=== PATIENT | male | born 1945 | race Caucasian/White ===

== ENCOUNTER 2017-03-15 22:21 | Inpatient (IN) | payer MEDICARE, OTHER ==
[2017-03-15 22:22] VITALS: BMI 25.7
[2017-03-15] MEDS ORDERED: Nitroglycerin 50mg in D5W 50 MG/250 ML BOTTLE IV SCH (22:32)
[2017-03-15 22:58] LABS: BASO # 0.2 K/uL (0.0-0.2); BASO % 1.1 % (0.0-2.0); EOS # 0.3 K/uL (0.0-0.7); EOS % 1.6 % (0.0-4.0); HEMATOCRIT 32.8 % (35.0-51.0); LYMPH # 3.2 K/uL (1.0-4.3); LYMPH % 18.8 % (20.0-40.0); MEAN CELL VOLUME 99.8 fL (80.0-94.0); MEAN CORPUSCULAR HEMOGLOBIN 32.9 pg (27.0-31.0); MEAN CORPUSCULAR HGB CONC 32.9 g/dL (33.0-37.0); MEAN PLATELET VOLUME 10.4 fL (7.2-11.7); MONO # 1.1 K/uL (0.0-0.8); MONO % 6.5 % (0.0-10.0); NRBC % 0.1 % (0.0-2.0); RED CELL DISTRIBUTION WIDTH 19.5 % (11.5-14.5); WHITE BLOOD COUNT 17.2 K/uL (4.8-10.8)
[2017-03-15 23:09] LABS: ALB/GLOB RATIO 1.3 (1.0-2.1); CALCIUM 9.1 mg/dl (8.6-10.4); TOTAL PROTEIN 7.9 g/dL (6.3-8.3)
[2017-03-15 23:22] LABS: TROPONIN I 0.064 ng/mL (0.00-0.120)
[2017-03-16] MEDS: Nitroglycerin 50mg in D5W 50 MG/250 ML BOTTLE IV SCH ×4 (00:45→08:53)
--- NOTE | 2017-03-16 00:52 | C.PDOC ---
History Of Present Illness 71 y/o male brought to ED by EMS for sudden onset shortness of breath. Patient gets dialysis Sunday, Sunday and Sunday states he went yesterday. While on field patient received bypap, Nitro drip and Lasix. No other complaints at this time. Time Seen by Provider: 03/15/17 22:34 Chief Complaint (Nursing): Shortness Of Breath History Per: Patient History/Exam Limitations: no limitations Onset/Duration Of Symptoms: Hrs Current Symptoms Are (Timing): Still Present Past Medical History Reviewed: Historical Data, Nursing Documentation, Vital Signs Vital Signs: Last Vital Signs Temp 98 F 03/15/17 22:28 Pulse 114 H 03/16/17 01:54 Resp 20 03/16/17 01:54 BP 152/96 H 03/16/17 01:54 Pulse Ox 100 03/16/17 01:54 - Medical History PMH: CAD, Cardia Arrhythmia, Diabetes, Gall Bladder Disease (GALLSTONES), HTN Surgical History: Cholecystectomy, Tonsillectomy - [facility] Procedures INTRAOPER CHOLANGIOGRAM (10/15/13) LAPAROSCOPIC CHOLECYSTECTOMY (10/15/13) Family History: States: No Known Family Hx - Social History Hx Tobacco Use: No Hx Alcohol Use: No Hx Substance Use: No - Immunization History Hx Tetanus Toxoid Vaccination: No Hx Influenza Vaccination: Yes Hx Pneumococcal Vaccination: No Review Of Systems Constitutional: Negative for: Fever, Chills Cardiovascular: Negative for: Chest Pain Respiratory: Positive for: Shortness of Breath. Negative for: Cough Gastrointestinal: Negative for: Nausea, Vomiting Skin: Negative for: Rash Physical Exam - Physical Exam Appears: Other (Severe respiratory distress) Skin: Warm, Dry Head: Atraumatic, Normacephalic Oral Mucosa: Moist Neck: Normal ROM, Supple Chest: Symmetrical Cardiovascular: Rhythm Regular Respiratory: Rales (Bypap bilaterally), No Rhonchi, No Wheezing Gastrointestinal/Abdominal: Soft, No Tenderness, No Guarding, No Rebound Extremity: Normal ROM, No Pedal Edema Neurological/Psych: Oriented x3 ED Course And Treatment - Laboratory Results Result Diagrams: 03/15/17 22:55 03/15/17 22:55 Lab Interpretation: Abnormal ECG: Interpreted By Me ECG Rhythm: L BBB ECG Interpretation: Normal, Abnormal Rate From EC (bpm) O2 Sat by Pulse Oximetry: 98 (RA) Pulse Ox Interpretation: Normal - Radiology CXR: Interpreted by Me CXR Interpretation: Yes: Heart Size, Other (++ CHF) Progress Note: nitro and Cardizem drips, BiPap Reevaluation Time: 00:58 Reassessment Condition: Improved (mild improved) - Physician Consult Information Outcome Of Conversation: 0045: d/w Dr. Kyle- ICU- ok to icu. 0050: d/w Dr Poe, Hospitalist covering pt's for Dr. Hopkins- ok to ICU. 0100: d/w Dr. Rebollar- Nephrology [employer]arer- ok to order HD when HD RN arrives. Medical Decision Making Medical Decision Making: flash pulm edema, mild hyperkalemia, no overall body fluid overload continue BP meds and Stat HD ICU Disposition Doctor Will See Patient In The: Hospital - Disposition Disposition: HOSPITALIZED Disposition Time: 01:00 Condition: FAIR - Clinical Impression Clinical Impression: CHF (congestive heart failure), Uncontrolled hypertension - Scribe Statement The provider has reviewed the documentation as recorded by the Paco Gordon All medical record entries made by the Paco were at my direction and personally dictated by me. I have reviewed the chart and agree that the record accurately reflects my personal performance of the history, physical exam, medical decision making, and the department course for this patient. I have also personally directed, reviewed, and agree with the discharge instructions and disposition.
--- NOTE | 2017-03-16 02:05 | CP.PCM.HP ---
<IanJillian RiversHuyen - Last Filed: 03/16/17 04:01> History of Present Illness - History of Present Illness History of Present Illness: 71 year old male with history of end stage renal disease, diabetes, hypertension and prostate cancer presents to the ED for difficulty breathing. Patient states he was recently admitted to [place] for abdominal pain and was discharged 2-3 weeks ago. Patient stated he vomited once while in the ED and has been coughing for the past 3 weeks with green sputum. Patient denies having a heart attack in the past. Patient denies chest pain, palpiations at this time. PMD: Sandeep Lead Mason Tender: Dr. Valerio Past Medical History: End stage renal disease (dialysis MWF), diabetes, hypertension, prostate cancer Past Surgical History: prostate, cholecystectomy, AVF in left arm Social History: denies smoking, denies alcohol use, lives with Family history: not contributory Medications: details not available as patient does not remember- per she will bring in the medications to verify Allergies: NKDA Present on Admission - Present on Admission Any Indicators Present on Admission: No Review of Systems - Review of Systems Systems not reviewed;Unavailable: Respiratory Distress - Constitutional Constitutional: absent: Chills, Fever, Headache - Cardiovascular Cardiovascular: Dyspnea. absent: Chest Pain - Respiratory Respiratory: Cough, Dyspnea, Dyspnea on Exertion, Change in Mucous Color (green) - Gastrointestinal Gastrointestinal: Nausea, Vomiting. absent: Constipation, Diarrhea - Genitourinary Genitourinary: absent: Dysuria - Musculoskeletal Musculoskeletal: absent: Numbness, Tingling - Neurological Neurological: absent: Dizziness, Headaches, Weakness Past Patient History - Past Medical History & Family History Past Medical History?: Yes - Past Social History Smoking Status: Never Smoked - CARDIAC Hx Cardia Arrhythmia: Yes Hx Hypertension: Yes - HEENT Hx HEENT Problems: Yes Other/Comment: RINGING RIGHT EAR - ENDOCRINE/METABOLIC Hx Endocrine Disorders: Yes Hx Diabetes Mellitus Type 2: Yes - HEMATOLOGICAL/ONCOLOGICAL Hx Blood Disorders: Yes Hx Cancer: Yes (PROSTATE) - GASTROINTESTINAL Hx Gall Bladder Disease: Yes (GALLSTONES) - GENITOURINARY/GYNECOLOGICAL Hx Genitourinary Disorders: Yes Hx Prostate Cancer: Yes Other/Comment: POST URINARY FREQUENCT PROSTATE SX SURGERY ON URETHRA NO LONGER FREQUENCY - PSYCHIATRIC Hx Substance Use: No - SURGICAL HISTORY Hx Cholecystectomy: Yes Hx Tonsillectomy: Yes - ANESTHESIA Hx Anesthesia: Yes Hx Anesthesia Reactions: No Meds Allergies/Adverse Reactions: Allergies Allergy/AdvReac Type Severity Reaction Status Date / Time No Known Allergies Allergy Unverified 04/21/15 12:54 Physical Exam - Constitutional Appears: In Acute Distress - Head Exam Head Exam: ATRAUMATIC, NORMAL INSPECTION, NORMOCEPHALIC - Eye Exam Eye Exam: EOMI, Normal appearance, PERRL Pupil Exam: NORMAL ACCOMODATION - ENT Exam ENT Exam: Mucous Membranes Moist - Respiratory Exam Respiratory Exam: Respiratory Distress - Cardiovascular Exam Cardiovascular Exam: REGULAR RHYTHM, +S1, +S2. absent: JVD - GI/Abdominal Exam GI & Abdominal Exam: Normal Bowel Sounds, Soft. absent: Tenderness - Extremities Exam Extremities exam: Positive for: normal inspection. Negative for: pedal edema, tenderness Additional comments: AV fistula in left arm - Neurological Exam Neurological exam: Alert, Oriented x3 - Skin Skin Exam: Normal Color, Warm Results - Vital Signs Recent Vital Signs: Last Vital Signs Temp 98 F 03/15/17 22:28 Pulse 114 H 03/16/17 01:54 Resp 20 03/16/17 01:54 BP 152/96 H 03/16/17 01:54 Pulse Ox 98 03/16/17 02:05 - Labs Result Diagrams: 03/15/17 22:55 03/15/17 22:55 Labs: Laboratory Results - last 24 hr 03/15/17 03/15/17 22:55 22:55 WBC 17.2 H D RBC 3.29 L Hgb 10.8 L Hct 32.8 L MCV 99.8 H D MCH 32.9 H MCHC 32.9 L RDW 19.5 H Plt Count 210 D MPV 10.4 Neut % (Auto) 72.0 Lymph % (Auto) 18.8 L [place] % (Auto) 6.5 Eos % (Auto) 1.6 Baso % (Auto) 1.1 Neut # 12.4 H Lymph # 3.2 [place] # 1.1 H Eos # 0.3 Baso # 0.2 Sodium 135 Potassium 6.0 H Chloride 97 L Carbon Dioxide 19 L Anion Gap 25 H BUN 50 H Creatinine 6.9 H Est GFR ( Amer) 10 Est GFR (Non-Af Amer) 8 Random Glucose 247 H Calcium 9.1 Total Bilirubin 1.0 AST 20 ALT 25 Alkaline Phosphatase 60 Troponin I 0.0640 NT-Pro-B Natriuret Pep 42925 H Total Protein 7.9 Albumin 4.5 Globulin 3.4 Albumin/Globulin Ratio 1.3 Assessment & Plan - Assessment and Plan (Free Text) Assessment: 1.) Shortness of breath possibly secondary to HTN urgency - Patient admitted to ICU - Hydralazine PRN - High flow O2 - f/u chest x-ray 2.) History of ESRD - Dialysis MWF - Nephrology Consult: Dr. Pickens --> help appreciated 3.) History of HTN cardiomyopathy - EKG: LBBB - f/u ECHO 4.) History of Diabets - Insulin dependent DM - Accuchecks 5.) Prophylaxis - Heparin SC - Protonix - SCDs - Confirm home medications with <Cristian Poe - Last Filed: 03/16/17 04:29> Results - Vital Signs Recent Vital Signs: Last Vital Signs Temp 98 F 03/15/17 22:28 Pulse 113 H 03/16/17 03:24 Resp 33 H 03/16/17 03:24 BP 174/100 H 03/16/17 03:24 Pulse Ox 98 03/16/17 03:24 - Labs Result Diagrams: 03/15/17 22:55 03/15/17 22:55 Labs: Laboratory Results - last 24 hr 03/15/17 03/15/17 22:55 22:55 WBC 17.2 H D RBC 3.29 L Hgb 10.8 L Hct 32.8 L MCV 99.8 H D MCH 32.9 H MCHC 32.9 L RDW 19.5 H Plt Count 210 D MPV 10.4 Neut % (Auto) 72.0 Lymph % (Auto) 18.8 L [place] % (Auto) 6.5 Eos % (Auto) 1.6 Baso % (Auto) 1.1 Neut # 12.4 H Lymph # 3.2 [place] # 1.1 H Eos # 0.3 Baso # 0.2 Sodium 135 Potassium 6.0 H Chloride 97 L Carbon Dioxide 19 L Anion Gap 25 H BUN 50 H Creatinine 6.9 H Est GFR ( Amer) 10 Est GFR (Non-Af Amer) 8 Random Glucose 247 H Calcium 9.1 Total Bilirubin 1.0 AST 20 ALT 25 Alkaline Phosphatase 60 Troponin I 0.0640 NT-Pro-B Natriuret Pep 98547 H Total Protein 7.9 Albumin 4.5 Globulin 3.4 Albumin/Globulin Ratio 1.3 Assessment & Plan - Date & Time Date: 03/16/17 (I have seen and examined the patient. I agree with the findings and plan of care as documented by Dr. Sosa. Patient with acute pulmonary edema. ESRD. Nephro consult for emergent dialysis. Monitor oxygen saturation and maintain airway. Admit to ICU for close monitor. Also with history of diabetes. Accuchecks and NISS. Monitor for acute changes.) Time: 04:28 Attending/Attestation - Attestation I have personally seen and examined this patient.: Yes I have fully participated in the care of the patient.: Yes I have reviewed all pertinent clinical information: Yes
--- NOTE | 2017-03-16 02:20 | CP.PCM.CON ---
History of Present Illness - History of Present Illness History of Present Illness: 71 M ESRD on HD MWF, HTN, DM, LBBB, prostate cancer s/p surg, non compliance with diet/meds brought to ER via ambulance, patient noticed in ER to be in CHF, right side pulm edema, RR in 40, HR in 140's, BP 220/150 was initially in ER given amiodarone, diltiazem and nitro drip started. Denied CP, patient in ER anxious and requested to go home despite sob and Niece who is nurse in Hospital made him stay. PMH as above PSH prostate, cholecystectomy, AVF in left arm Allergies NKDA Social denies smoking alcohol lives with Family history not contributory Meds details not available as pt does not remember, but takes bp meds, insulin In ER step down method used for BP NTG started at 200mcg/kg/min, iv hydralazine 5mg, diltiazem tapered and dced, arrangement being made for urgent HD, Review of Systems - Review of Systems All systems: reviewed and no additional remarkable complaints except (HPI) Past Patient History - Past Medical History & Family History Past Medical History?: Yes - Past Social History Smoking Status: Never Smoked - CARDIAC Hx Cardia Arrhythmia: Yes Hx Hypertension: Yes - HEENT Hx HEENT Problems: Yes Other/Comment: RINGING RIGHT EAR - ENDOCRINE/METABOLIC Hx Endocrine Disorders: Yes Hx Diabetes Mellitus Type 2: Yes - HEMATOLOGICAL/ONCOLOGICAL Hx Blood Disorders: Yes Hx Cancer: Yes (PROSTATE) - GASTROINTESTINAL Hx Gall Bladder Disease: Yes (GALLSTONES) - GENITOURINARY/GYNECOLOGICAL Hx Genitourinary Disorders: Yes Hx Prostate Cancer: Yes Other/Comment: POST URINARY FREQUENCT PROSTATE SX SURGERY ON URETHRA NO LONGER FREQUENCY - PSYCHIATRIC Hx Substance Use: No - SURGICAL HISTORY Hx Cholecystectomy: Yes Hx Tonsillectomy: Yes - ANESTHESIA Hx Anesthesia: Yes Hx Anesthesia Reactions: No Meds Allergies/Adverse Reactions: Allergies Allergy/AdvReac Type Severity Reaction Status Date / Time No Known Allergies Allergy Unverified 04/21/15 12:54 - Medications Medications: Current Medications Heparin Sodium (Porcine) (Heparin) 5,000 units SC Q8 SINDI Nitroglycerin/Dextrose (Nitroglycerin 50 Mg/250 Ml D5w) 50 mg in 250 mls @ 60 mls/hr IV .Q4H10M SINDI; 200 MCG/MIN PRN Reason: Protocol Last Admin: 03/16/17 00:45 Dose: 60 mls/hr Pantoprazole Sodium (Protonix Inj) 40 mg IVP Q12H SINDI Physical Exam - Additional Findings Additional findings: * HEENT ROSALIND * Neck no significant JVD * CVS regular HR QRS complex to baseline LBBB * PA soft * Ext trace 1+ edema, avf in left arm * PEDIATRIC NURSE PRACTITIONER awake oriented x3 * Skin normal turgor Results - Vital Signs Recent Vital Signs: Last Vital Signs Temp 98 F 03/15/17 22:28 Pulse 114 H 03/16/17 01:54 Resp 20 03/16/17 01:54 BP 152/96 H 03/16/17 01:54 Pulse Ox 98 03/16/17 02:05 - Labs Result Diagrams: 03/15/17 22:55 03/15/17 22:55 Labs: Laboratory Results - last 24 hr 03/15/17 03/15/17 22:55 22:55 WBC 17.2 H D RBC 3.29 L Hgb 10.8 L Hct 32.8 L MCV 99.8 H D MCH 32.9 H MCHC 32.9 L RDW 19.5 H Plt Count 210 D MPV 10.4 Neut % (Auto) 72.0 Lymph % (Auto) 18.[address] [place] % (Auto) 6.5 Eos % (Auto) 1.6 Baso % (Auto) 1.1 Neut # 12.4 H Lymph # 3.2 [place] # 1.1 H Eos # 0.3 Baso # 0.2 Sodium 135 Potassium 6.0 H Chloride 97 L Carbon Dioxide 19 L Anion Gap 25 H BUN 50 H Creatinine 6.9 H Est GFR ( Amer) 10 Est GFR (Non-Af Amer) 8 Random Glucose 247 H Calcium 9.1 Total Bilirubin 1.0 AST 20 ALT 25 Alkaline Phosphatase 60 Troponin I 0.0640 NT-Pro-B Natriuret Pep 15650 H Total Protein 7.9 Albumin 4.5 Globulin 3.4 Albumin/Globulin Ratio 1.3 Assessment & Plan - Assessment and Plan (Free Text) Assessment: * Acute asymmetric flash right side pulm/interstial edema due to HTN urgency * ESRD on HD MWF * HTN cardiomyopathy * LBBB * Insulin dependent DM * Poor compliance with diet and meds * Prostate cancer s/p surg Plan: * NTG high dose to bring SBP 120 * prn hydralazine * HD urgent, contacted * High flow o2 * insulin sliding scale * Confirm home meds * GI/DVT prophylaxis
[2017-03-16] MEDS: (Novolin R) Insulin Human Regular 100 units/ml vial SC SCH ×2 (08:19→12:10)
--- NOTE | 2017-03-16 08:38 | RAD ---
HISTORY: SOB COMPARISON: Chest x-ray performed 09/25/16 TECHNIQUE: Chest, one view. FINDINGS: Examination limited by habitus and patient obliquity. LUNGS: Biapical pleural thickening. Extensive interstitial markings and airspace opacities may reflect infection or edema. External defibrillator pad projects over the left lower lateral chest obscuring evaluation of the underlying parenchyma. PLEURA: Probable small bilateral pleural effusions. No definite pneumothorax . CARDIOVASCULAR: Cardiomegaly. OSSEOUS STRUCTURES: Degenerative changes. VISUALIZED UPPER ABDOMEN: Unremarkable. OTHER FINDINGS: None. IMPRESSION: Extensive interstitial markings and airspace opacities may reflect infection or edema. Probable small bilateral pleural effusions. Biapical pleural thickening. Cardiomegaly.
[2017-03-16 09:50] LABS: BASO # 0.1 K/uL (0.0-0.2); BASO % 0.7 % (0.0-2.0); EOS # 0.1 K/uL (0.0-0.7); EOS % 0.8 % (0.0-4.0); LYMPH # 1.9 K/uL (1.0-4.3); LYMPH % 15.8 % (20.0-40.0); MEAN CELL VOLUME 100.3 fL (80.0-94.0); MEAN CORPUSCULAR HGB CONC 32.9 g/dL (33.0-37.0); MEAN PLATELET VOLUME 10.1 fL (7.2-11.7); MONO # 1.2 K/uL (0.0-0.8); MONO % 10.4 % (0.0-10.0); RED CELL DISTRIBUTION WIDTH 19.4 % (11.5-14.5)
[2017-03-16] MEDS ORDERED: Pantoprazole 40 mg EC Tab PO SCH (11:15)
[2017-03-16 11:22] VITALS: TEMP 98.8
[2017-03-16] MEDS ORDERED: Labetalol Hydrochloride 300 mg Tab PO SCH ×2 (11:44→14:00)
--- NOTE | 2017-03-16 12:07 | CP.PCM.PN ---
Subjective - Date & Time of Evaluation Date of Evaluation: 03/16/17 Time of Evaluation: 12:07 - Subjective Subjective: Denies SOB,patient wants to go home,feels good Objective - Vital Signs/Intake and Output Vital Signs (last 24 hours): Temp Pulse Resp BP Pulse Ox 98.8 F 102 H 25 H 168/97 H 88 L 03/16/17 08:00 03/16/17 11:00 03/16/17 11:00 03/16/17 10:51 03/16/17 11:00 Intake and Output: 03/16/17 03/16/17 06:59 18:59 Intake Total 260 554 Output Total 0 50 Balance 260 504 - Medications Medications: Current Medications Clonidine HCl (Catapres) 0.1 mg PO TID [facility] Heparin Sodium (Porcine) (Heparin) 5,000 units SC Q8 [facility] Last Admin: 03/16/17 06:25 Dose: 5,000 units Insulin Human Regular (Novolin R) 0 unit SC ACHS [facility] PRN Reason: Protocol Last Admin: 03/16/17 08:19 Dose: 1 unit Labetalol HCl (Normodyne) 300 mg PO TID [facility] Last Admin: 03/16/17 12:00 Dose: 300 mg Pantoprazole Sodium (Protonix Ec Tab) 40 mg PO DAILY [facility] Pneumococcal Polyvalent Vaccine (Pneumovax 23 Vaccine) 0.5 ml IM .ONCE ONE Stop: 03/18/17 10:01 - Labs Labs: 03/16/17 09:45 03/15/17 22:55 - Constitutional Appears: Non-toxic, No Acute Distress - Head Exam Head Exam: NORMAL INSPECTION - Eye Exam Eye Exam: Normal appearance - ENT Exam ENT Exam: Mucous Membranes Moist - Neck Exam Neck Exam: Full ROM - Respiratory Exam Respiratory Exam: Rales, NORMAL BREATHING PATTERN - Cardiovascular Exam Cardiovascular Exam: REGULAR RHYTHM - GI/Abdominal Exam GI & Abdominal Exam: Soft, Normal Bowel Sounds - Neurological Exam Neurological Exam: Alert, Oriented x3 - Psychiatric Exam Psychiatric exam: Normal Mood - Skin Skin Exam: Normal Color Assessment and Plan - Assessment and Plan (Free Text) Assessment: 71 M PMHx of HTN, ESRD, DM presented with SOB due to pulmonary edema. He improved after HD,feels good and wants to leave AMA.Hi sBlood is high. Spoke to patient with the bilingual interpreter service in detail.Explained that he should stay until his blood pressure controlled.He wanted all IV lines out and let him leave.Explained about the rist of respiratory failure,stroke and .His son in law spoke to him 1.Pulmonary edema-Due to ESRD better after HD 2.HTN/Hypertensive urgency continue labetolol and clonidine 3.ESRD-HD d/w patient's aeroplane pilot Dr aLzaro 4.DM 5.prophylaxis-GI and DVT
[2017-03-16 12:13] VITALS: O2SAT 99
[2017-03-16 13:22] VITALS: BP 165/94; PULSE 92; RESP 17
--- NOTE | 2017-03-16 14:47 | CP.CCUPN ---
<Leonie Smith - Last Filed: 03/16/17 15:04> CCU Subjective - Physician Review Subjective (Free Text): Patient seen and examined at bedside. Patient denies any symptoms at this time and is eager to go home. Explained to patient that his blood pressure has not been optimized and that he should be monitored inpatient until it stabilizes. Patient denies shortness of breath, chest pain, abdominal pain, nausea, vomiting , constipation or diarrhea. Patient left AMA, patient explained risks including but not limited to hypertension, stroke, respiratory failure, and . CCU Objective - Vital Signs / Intake & Output Vital Signs (Last 4 hours): Vital Signs Pulse Resp BP Pulse Ox 03/16/17 12:40 92 H 17 03/16/17 12:30 93 H 34 H 03/16/17 12:23 95 H 19 165/94 H 03/16/17 12:20 94 H 25 H 03/16/17 12:10 101 H 27 H 03/16/17 12:06 108 H 14 03/16/17 12:00 104 H 28 H 03/16/17 11:51 103 H 25 H 03/16/17 11:50 103 H 25 H 03/16/17 11:40 108 H 13 03/16/17 11:36 106 H 17 99 03/16/17 11:30 104 H 12 98 03/16/17 11:21 101 H 25 H 176/104 H 99 03/16/17 11:20 102 H 26 H 98 03/16/17 11:10 106 H 16 93 L 03/16/17 11:06 102 H 18 176/96 H 93 L 03/16/17 11:00 102 H 25 H 88 L 03/16/17 10:51 99 H 16 168/97 H 95 03/16/17 10:50 96 H 23 95 Intake and Output (Last 8hrs): Intake & Output 03/15/17 03/16/17 03/16/17 22:59 06:59 14:59 Intake Total 260 604 Output Total 0 50 Balance 260 554 Weight 170 lb 165 lb 5.547 oz Intake: IV 250 Intake, IV Amount 260 194 Right Hand 240 189 Right Wrist 20 5 Oral 160 Output: Urine 0 50 Urine, Voided 0 50 - Physical Exam Head: Positive for: Atraumatic, Normocephalic Respiratory/Chest: Positive for: Clear to Auscultation. Negative for: Wheezes Cardiovascular: Positive for: Normal S1, S2, Tachycardic Abdomen: Negative for: Tenderness, Distention Lower Extremity: Positive for: Normal Inspection Neurological: Positive for: GCS=15 Skin: Positive for: Warm, Normal Color Psychiatric: Positive for: Alert, Oriented x 3 - Patient Studies Lab Studies: Lab Studies 03/16/17 03/16/17 03/16/17 Range/Units 12:07 09:45 07:52 WBC 12.0 H (4.8-10.8) K/uL RBC 2.79 L (4.40-5.90) Mil/uL Hgb 9.2 L (12.0-18.0) g/dL Hct 28.0 L (35.0-51.0) % MCV 100.3 H (80.0-94.0) fL MCH 33.0 H (27.0-31.0) pg MCHC 32.9 L (33.0-37.0) g/dL RDW 19.4 H (11.5-14.5) % Plt Count 130 (130-400) K/uL MPV 10.1 (7.2-11.7) fL Neut % (Auto) 72.3 (50.0-75.0) % Lymph % (Auto) 15.8 L (20.0-40.0) % Rankin % (Auto) 10.4 H (0.0-10.0) % Eos % (Auto) 0.8 (0.0-4.0) % Baso % (Auto) 0.7 (0.0-2.0) % Neut # 8.7 H (1.8-7.0) K/uL Lymph # 1.9 (1.0-4.3) K/uL Rankin # 1.2 H (0.0-0.8) K/uL Eos # 0.1 (0.0-0.7) K/uL Baso # 0.1 (0.0-0.2) K/uL Sodium (132-148) mmol/L Potassium (3.6-5.2) mmol/L Chloride (98-107) mmol/L Carbon Dioxide (22-30) mmol/L Anion Gap (10-20) BUN (9-20) mg/dL Creatinine (0.8-1.5) mg/dL Est GFR ( Amer) Est GFR (Non-Af Amer) POC Glucose (mg/dL) 137 H 173 H (65-110) mg/dL Random Glucose (75-110) mg/dL Calcium (8.6-10.4) mg/dl Total Bilirubin (0.2-1.3) mg/dL AST (17-59) U/L ALT (21-72) U/L Alkaline Phosphatase (38-126) U/L Troponin I (0.00-0.120) ng/mL NT-Pro-B Natriuret Pep (0-900) pg/mL Total Protein (6.3-8.3) g/dL Albumin (3.5-5.0) g/dL Globulin (2.2-3.9) gm/dL Albumin/Globulin Ratio (1.0-2.1) Hep Bs Antibody (NEGATIVE) Hep B Core IgM Ab (NEGATIVE) Hepatitis C Antibody (NEGATIVE) 03/16/17 03/16/17 03/15/17 Range/Units 06:53 06:53 22:55 WBC (4.8-10.8) K/uL RBC (4.40-5.90) Mil/uL Hgb (12.0-18.0) g/dL Hct (35.0-51.0) % MCV (80.0-94.0) fL MCH (27.0-31.0) pg MCHC (33.0-37.0) g/dL RDW (11.5-14.5) % Plt Count (130-400) K/uL MPV (7.2-11.7) fL Neut % (Auto) (50.0-75.0) % Lymph % (Auto) (20.0-40.0) % Rankin % (Auto) (0.0-10.0) % Eos % (Auto) (0.0-4.0) % Baso % (Auto) (0.0-2.0) % Neut # (1.8-7.0) K/uL Lymph # (1.0-4.3) K/uL Rankin # (0.0-0.8) K/uL Eos # (0.0-0.7) K/uL Baso # (0.0-0.2) K/uL Sodium 135 (132-148) mmol/L Potassium 6.0 H (3.6-5.2) mmol/L Chloride 97 L (98-107) mmol/L Carbon Dioxide 19 L (22-30) mmol/L Anion Gap 25 H (10-20) BUN 50 H (9-20) mg/dL Creatinine 6.9 H (0.8-1.5) mg/dL Est GFR ( Amer) 10 Est GFR (Non-Af Amer) 8 POC Glucose (mg/dL) (65-110) mg/dL Random Glucose 247 H (75-110) mg/dL Calcium 9.1 (8.6-10.4) mg/dl Total Bilirubin 1.0 (0.2-1.3) mg/dL AST 20 (17-59) U/L ALT 25 (21-72) U/L Alkaline Phosphatase 60 (38-126) U/L Troponin I 0.0640 (0.00-0.120) ng/mL NT-Pro-B Natriuret Pep 14043 H (0-900) pg/mL Total Protein 7.9 (6.3-8.3) g/dL Albumin 4.5 (3.5-5.0) g/dL Globulin 3.4 (2.2-3.9) gm/dL Albumin/Globulin Ratio 1.3 (1.0-2.1) Hep Bs Antibody Positive (NEGATIVE) Hep B Core IgM Ab Negative (NEGATIVE) Hepatitis C Antibody Negative (NEGATIVE) 03/15/17 Range/Units 22:55 WBC 17.2 H D (4.8-10.8) K/uL RBC 3.29 L (4.40-5.90) Mil/uL Hgb 10.8 L (12.0-18.0) g/dL Hct 32.8 L (35.0-51.0) % MCV 99.8 H D (80.0-94.0) fL MCH 32.9 H (27.0-31.0) pg MCHC 32.9 L (33.0-37.0) g/dL RDW 19.5 H (11.5-14.5) % Plt Count 210 D (130-400) K/uL MPV 10.4 (7.2-11.7) fL Neut % (Auto) 72.0 (50.0-75.0) % Lymph % (Auto) 18.8 L (20.0-40.0) % Rankin % (Auto) 6.5 (0.0-10.0) % Eos % (Auto) 1.6 (0.0-4.0) % Baso % (Auto) 1.1 (0.0-2.0) % Neut # 12.4 H (1.8-7.0) K/uL Lymph # 3.2 (1.0-4.3) K/uL Rankin # 1.1 H (0.0-0.8) K/uL Eos # 0.3 (0.0-0.7) K/uL Baso # 0.2 (0.0-0.2) K/uL Sodium (132-148) mmol/L Potassium (3.6-5.2) mmol/L Chloride (98-107) mmol/L Carbon Dioxide (22-30) mmol/L Anion Gap (10-20) BUN (9-20) mg/dL Creatinine (0.8-1.5) mg/dL Est GFR ( Amer) Est GFR (Non-Af Amer) POC Glucose (mg/dL) (65-110) mg/dL Random Glucose (75-110) mg/dL Calcium (8.6-10.4) mg/dl Total Bilirubin (0.2-1.3) mg/dL AST (17-59) U/L ALT (21-72) U/L Alkaline Phosphatase (38-126) U/L Troponin I (0.00-0.120) ng/mL NT-Pro-B Natriuret Pep (0-900) pg/mL Total Protein (6.3-8.3) g/dL Albumin (3.5-5.0) g/dL Globulin (2.2-3.9) gm/dL Albumin/Globulin Ratio (1.0-2.1) Hep Bs Antibody (NEGATIVE) Hep B Core IgM Ab (NEGATIVE) Hepatitis C Antibody (NEGATIVE) Laboratory Results - last 24 hr 03/15/17 03/15/17 03/16/17 22:55 22:55 06:53 WBC 17.2 H D RBC 3.29 L Hgb 10.8 L Hct 32.8 L MCV 99.8 H D MCH 32.9 H MCHC 32.9 L RDW 19.5 H Plt Count 210 D MPV 10.4 Neut % (Auto) 72.0 Lymph % (Auto) 18.8 L Rankin % (Auto) 6.5 Eos % (Auto) 1.6 Baso % (Auto) 1.1 Neut # 12.4 H Lymph # 3.2 Rankin # 1.1 H Eos # 0.3 Baso # 0.2 Sodium 135 Potassium 6.0 H Chloride 97 L Carbon Dioxide 19 L Anion Gap 25 H BUN 50 H Creatinine 6.9 H Est GFR ( Amer) 10 Est GFR (Non-Af Amer) 8 POC Glucose (mg/dL) Random Glucose 247 H Calcium 9.1 Total Bilirubin 1.0 AST 20 ALT 25 Alkaline Phosphatase 60 Troponin I 0.0640 NT-Pro-B Natriuret Pep 04691 H Total Protein 7.9 Albumin 4.5 Globulin 3.4 Albumin/Globulin Ratio 1.3 Hep Bs Antibody Positive Hep B Core IgM Ab Hepatitis C Antibody 03/16/17 03/16/17 03/16/17 06:53 07:52 09:45 WBC 12.0 H RBC 2.79 L Hgb 9.2 L Hct 28.0 L MCV 100.3 H MCH 33.0 H MCHC 32.9 L RDW 19.4 H Plt Count 130 MPV 10.1 Neut % (Auto) 72.3 Lymph % (Auto) 15.8 L Rankin % (Auto) 10.4 H Eos % (Auto) 0.8 Baso % (Auto) 0.7 Neut # 8.7 H Lymph # 1.9 Rankin # 1.2 H Eos # 0.1 Baso # 0.1 Sodium Potassium Chloride Carbon Dioxide Anion Gap BUN Creatinine Est GFR ( Amer) Est GFR (Non-Af Amer) POC Glucose (mg/dL) 173 H Random Glucose Calcium Total Bilirubin AST ALT Alkaline Phosphatase Troponin I NT-Pro-B Natriuret Pep Total Protein Albumin Globulin Albumin/Globulin Ratio Hep Bs Antibody Hep B Core IgM Ab Negative Hepatitis C Antibody Negative 03/16/17 12:07 WBC RBC Hgb Hct MCV MCH MCHC RDW Plt Count MPV Neut % (Auto) Lymph % (Auto) Rankin % (Auto) Eos % (Auto) Baso % (Auto) Neut # Lymph # Rankin # Eos # Baso # Sodium Potassium Chloride Carbon Dioxide Anion Gap BUN Creatinine Est GFR ( Amer) Est GFR (Non-Af Amer) POC Glucose (mg/dL) 137 H Random Glucose Calcium Total Bilirubin AST ALT Alkaline Phosphatase Troponin I NT-Pro-B Natriuret Pep Total Protein Albumin Globulin Albumin/Globulin Ratio Hep Bs Antibody Hep B Core IgM Ab Hepatitis C Antibody EKG/Cardiology Studies: Cardiology / EKG Studies 03/15/17 22:35 ELECTROCARDIOGRAM Stat Comment: Mode Of Transportation: BED Reason For Exam: SOB Fingerstick Blood Sugar Results: 137 Review of Systems - Constitutional Constitutional: absent: Fever, Chills, Sweats, Weakness - Cardiovascular Cardiovascular: absent: Chest Pain, Diaphoresis, Dyspnea, Edema, Irregular Heart Rhythm, Leg Edema - Respiratory Respiratory: absent: Wheezing, Snoring - Gastrointestinal Gastrointestinal: absent: Constipation, Diarrhea, Nausea, Vomiting - Genitourinary Genitourinary: absent: Difficulty Urinating - Musculoskeletal Musculoskeletal: absent: Numbness, Tingling - Integumentary Integumentary: absent: Rash - Psychiatric Psychiatric: Irritability Critical Care Progress Note - Nutrition Nutrition: Nutrition Category Date Time Status Renal Diet [DIET] Diets 03/16/17 Breakfast Active Assessment/Plan - Assessment and Plan (Free Text) Assessment: 71 M PMHx of HTN, ESRD, DM presented with SOB 2/2 acute CHF. Pt is improved after HD this AM. Today: Patient left AMA, patient explained that his blood pressure was still elevated and that he needed to stay to better control his hypertension. Patient explained that his breathing could get worse which could leave to respiratory distress, respiratory failure, or . Neuro: intact, stable Cardio: HTN, tachycardia -Patient remains tachycardic and hypertensive -Restart home anti-hypertensives labetalol 300mg PO TID and clonidine 0.1 mg PO TID -repeat BNP -Echo Pulm: CHF, improved -Repeat CXR to reassess acute CHF/fluid overload GI: no acute issues, stable Nephro: ESRD on HD -Patient received HD this AM, tolerated well. Endo: diabetes -Novolin PPx: -protonix switched from IVP to PO <Moshe Willingham - Last Filed: 03/16/17 18:11> CCU Objective - Vital Signs / Intake & Output Intake and Output (Last 8hrs): Intake & Output 03/16/17 03/16/17 03/16/17 06:59 14:59 22:59 Intake Total 260 604 Output Total 0 50 Balance 260 554 Weight 165 lb 5.547 oz Intake: IV 250 Intake, IV Amount 260 194 Right Hand 240 189 Right Wrist 20 5 Oral 160 Output: Urine 0 50 Urine, Voided 0 50 - Patient Studies Lab Studies: Lab Studies 03/16/17 03/16/17 03/16/17 Range/Units 12:07 09:45 07:52 WBC 12.0 H (4.8-10.8) K/uL RBC 2.79 L (4.40-5.90) Mil/uL Hgb 9.2 L (12.0-18.0) g/dL Hct 28.0 L (35.0-51.0) % MCV 100.3 H (80.0-94.0) fL MCH 33.0 H (27.0-31.0) pg MCHC 32.9 L (33.0-37.0) g/dL RDW 19.4 H (11.5-14.5) % Plt Count 130 (130-400) K/uL MPV 10.1 (7.2-11.7) fL Neut % (Auto) 72.3 (50.0-75.0) % Lymph % (Auto) 15.8 L (20.0-40.0) % Rankin % (Auto) 10.4 H (0.0-10.0) % Eos % (Auto) 0.8 (0.0-4.0) % Baso % (Auto) 0.7 (0.0-2.0) % Neut # 8.7 H (1.8-7.0) K/uL Lymph # 1.9 (1.0-4.3) K/uL Rankin # 1.2 H (0.0-0.8) K/uL Eos # 0.1 (0.0-0.7) K/uL Baso # 0.1 (0.0-0.2) K/uL Sodium (132-148) mmol/L Potassium (3.6-5.2) mmol/L Chloride (98-107) mmol/L Carbon Dioxide (22-30) mmol/L Anion Gap (10-20) BUN (9-20) mg/dL Creatinine (0.8-1.5) mg/dL Est GFR ( Amer) Est GFR (Non-Af Amer) POC Glucose (mg/dL) 137 H 173 H (65-110) mg/dL Random Glucose (75-110) mg/dL Calcium (8.6-10.4) mg/dl Total Bilirubin (0.2-1.3) mg/dL AST (17-59) U/L ALT (21-72) U/L Alkaline Phosphatase (38-126) U/L Troponin I (0.00-0.120) ng/mL NT-Pro-B Natriuret Pep (0-900) pg/mL Total Protein (6.3-8.3) g/dL Albumin (3.5-5.0) g/dL Globulin (2.2-3.9) gm/dL Albumin/Globulin Ratio (1.0-2.1) Hep Bs Antibody (NEGATIVE) Hep B Core IgM Ab (NEGATIVE) Hepatitis C Antibody (NEGATIVE) 03/16/17 03/16/17 03/15/17 Range/Units 06:53 06:53 22:55 WBC (4.8-10.8) K/uL RBC (4.40-5.90) Mil/uL Hgb (12.0-18.0) g/dL Hct (35.0-51.0) % MCV (80.0-94.0) fL MCH (27.0-31.0) pg MCHC (33.0-37.0) g/dL RDW (11.5-14.5) % Plt Count (130-400) K/uL MPV (7.2-11.7) fL Neut % (Auto) (50.0-75.0) % Lymph % (Auto) (20.0-40.0) % Rankin % (Auto) (0.0-10.0) % Eos % (Auto) (0.0-4.0) % Baso % (Auto) (0.0-2.0) % Neut # (1.8-7.0) K/uL Lymph # (1.0-4.3) K/uL Rankin # (0.0-0.8) K/uL Eos # (0.0-0.7) K/uL Baso # (0.0-0.2) K/uL Sodium 135 (132-148) mmol/L Potassium 6.0 H (3.6-5.2) mmol/L Chloride 97 L (98-107) mmol/L Carbon Dioxide 19 L (22-30) mmol/L Anion Gap 25 H (10-20) BUN 50 H (9-20) mg/dL Creatinine 6.9 H (0.8-1.5) mg/dL Est GFR ( Amer) 10 Est GFR (Non-Af Amer) 8 POC Glucose (mg/dL) (65-110) mg/dL Random Glucose 247 H (75-110) mg/dL Calcium 9.1 (8.6-10.4) mg/dl Total Bilirubin 1.0 (0.2-1.3) mg/dL AST 20 (17-59) U/L ALT 25 (21-72) U/L Alkaline Phosphatase 60 (38-126) U/L Troponin I 0.0640 (0.00-0.120) ng/mL NT-Pro-B Natriuret Pep 28337 H (0-900) pg/mL Total Protein 7.9 (6.3-8.3) g/dL Albumin 4.5 (3.5-5.0) g/dL Globulin 3.4 (2.2-3.9) gm/dL Albumin/Globulin Ratio 1.3 (1.0-2.1) Hep Bs Antibody Positive (NEGATIVE) Hep B Core IgM Ab Negative (NEGATIVE) Hepatitis C Antibody Negative (NEGATIVE) 03/15/17 Range/Units 22:55 WBC 17.2 H D (4.8-10.8) K/uL RBC 3.29 L (4.40-5.90) Mil/uL Hgb 10.8 L (12.0-18.0) g/dL Hct 32.8 L (35.0-51.0) % MCV 99.8 H D (80.0-94.0) fL MCH 32.9 H (27.0-31.0) pg MCHC 32.9 L (33.0-37.0) g/dL RDW 19.5 H (11.5-14.5) % Plt Count 210 D (130-400) K/uL MPV 10.4 (7.2-11.7) fL Neut % (Auto) 72.0 (50.0-75.0) % Lymph % (Auto) 18.8 L (20.0-40.0) % Rankin % (Auto) 6.5 (0.0-10.0) % Eos % (Auto) 1.6 (0.0-4.0) % Baso % (Auto) 1.1 (0.0-2.0) % Neut # 12.4 H (1.8-7.0) K/uL Lymph # 3.2 (1.0-4.3) K/uL Rankin # 1.1 H (0.0-0.8) K/uL Eos # 0.3 (0.0-0.7) K/uL Baso # 0.2 (0.0-0.2) K/uL Sodium (132-148) mmol/L Potassium (3.6-5.2) mmol/L Chloride (98-107) mmol/L Carbon Dioxide (22-30) mmol/L Anion Gap (10-20) BUN (9-20) mg/dL Creatinine (0.8-1.5) mg/dL Est GFR ( Amer) Est GFR (Non-Af Amer) POC Glucose (mg/dL) (65-110) mg/dL Random Glucose (75-110) mg/dL Calcium (8.6-10.4) mg/dl Total Bilirubin (0.2-1.3) mg/dL AST (17-59) U/L ALT (21-72) U/L Alkaline Phosphatase (38-126) U/L Troponin I (0.00-0.120) ng/mL NT-Pro-B Natriuret Pep (0-900) pg/mL Total Protein (6.3-8.3) g/dL Albumin (3.5-5.0) g/dL Globulin (2.2-3.9) gm/dL Albumin/Globulin Ratio (1.0-2.1) Hep Bs Antibody (NEGATIVE) Hep B Core IgM Ab (NEGATIVE) Hepatitis C Antibody (NEGATIVE) Laboratory Results - last 24 hr 03/15/17 03/15/17 03/16/17 22:55 22:55 06:53 WBC 17.2 H D RBC 3.29 L Hgb 10.8 L Hct 32.8 L MCV 99.8 H D MCH 32.9 H MCHC 32.9 L RDW 19.5 H Plt Count 210 D MPV 10.4 Neut % (Auto) 72.0 Lymph % (Auto) 18.8 L Rankin % (Auto) 6.5 Eos % (Auto) 1.6 Baso % (Auto) 1.1 Neut # 12.4 H Lymph # 3.2 Rankin # 1.1 H Eos # 0.3 Baso # 0.2 Sodium 135 Potassium 6.0 H Chloride 97 L Carbon Dioxide 19 L Anion Gap 25 H BUN 50 H Creatinine 6.9 H Est GFR ( Amer) 10 Est GFR (Non-Af Amer) 8 POC Glucose (mg/dL) Random Glucose 247 H Calcium 9.1 Total Bilirubin 1.0 AST 20 ALT 25 Alkaline Phosphatase 60 Troponin I 0.0640 NT-Pro-B Natriuret Pep 53538 H Total Protein 7.9 Albumin 4.5 Globulin 3.4 Albumin/Globulin Ratio 1.3 Hep Bs Antibody Positive Hep B Core IgM Ab Hepatitis C Antibody 03/16/17 03/16/17 03/16/17 06:53 07:52 09:45 WBC 12.0 H RBC 2.79 L Hgb 9.2 L Hct 28.0 L MCV 100.3 H MCH 33.0 H MCHC 32.9 L RDW 19.4 H Plt Count 130 MPV 10.1 Neut % (Auto) 72.3 Lymph % (Auto) 15.8 L Rankin % (Auto) 10.4 H Eos % (Auto) 0.8 Baso % (Auto) 0.7 Neut # 8.7 H Lymph # 1.9 Rankin # 1.2 H Eos # 0.1 Baso # 0.1 Sodium Potassium Chloride Carbon Dioxide Anion Gap BUN Creatinine Est GFR ( Amer) Est GFR (Non-Af Amer) POC Glucose (mg/dL) 173 H Random Glucose Calcium Total Bilirubin AST ALT Alkaline Phosphatase Troponin I NT-Pro-B Natriuret Pep Total Protein Albumin Globulin Albumin/Globulin Ratio Hep Bs Antibody Hep B Core IgM Ab Negative Hepatitis C Antibody Negative 03/16/17 12:07 WBC RBC Hgb Hct MCV MCH MCHC RDW Plt Count MPV Neut % (Auto) Lymph % (Auto) Rankin % (Auto) Eos % (Auto) Baso % (Auto) Neut # Lymph # Rankin # Eos # Baso # Sodium Potassium Chloride Carbon Dioxide Anion Gap BUN Creatinine Est GFR ( Amer) Est GFR (Non-Af Amer) POC Glucose (mg/dL) 137 H Random Glucose Calcium Total Bilirubin AST ALT Alkaline Phosphatase Troponin I NT-Pro-B Natriuret Pep Total Protein Albumin Globulin Albumin/Globulin Ratio Hep Bs Antibody Hep B Core IgM Ab Hepatitis C Antibody EKG/Cardiology Studies: Cardiology / EKG Studies 03/15/17 22:35 ELECTROCARDIOGRAM Stat Comment: Mode Of Transportation: BED Reason For Exam: SOB Critical Care Progress Note - Nutrition Nutrition: Nutrition Category Date Time Status Renal Diet [DIET] Diets 03/16/17 Breakfast Active Assessment/Plan - Assessment and Plan (Free Text) Plan: CCM HIstory as noted by housestaff Pt denied complaints in AM. Claims he wants to go home alert, nad Neck- no jvdlungs- bilat bs Heart-rr aBd- benign eXt- nontender, no edema Labs,[id number] A&P HTN Emergency- improved CHF ESRD CAD DM Pt clinically improved Off tridil re-start PO BP meds f/u BP DVT prophylaxis d/w housestaff Pt may be leaving AMA Critical care time 35 min
--- NOTE | 2017-03-16 15:07 | RAD ---
HISTORY: sob COMPARISON: Comparison chest 03/15/2017 FINDINGS: LUNGS: Residual mild but improved pulmonary vascular congestion. Left lower lobe atelectasis and or infiltrate. . Minor right basilar atelectasis. PLEURA: No significant pleural effusion identified, no pneumothorax apparent. CARDIOVASCULAR: Heart size is enlarged unchanged aorta ectatic and uncoiled. OSSEOUS STRUCTURES: No significant abnormalities. VISUALIZED UPPER ABDOMEN: Normal. OTHER FINDINGS: None. IMPRESSION: Residual mild but improved pulmonary vascular congestion. Left lower lobe atelectasis and or infiltrate. . Minor right basilar atelectasis.
--- NOTE | 2017-03-16 23:44 | CARD ---
APPROVED REPORT EKG Measurement Heart [id number] ID [id number] <Conclusion> Sinus tachycardia with short ID Left bundle branch block Abnormal ECG
[2017-03-17 11:49] LABS: HB E AG Nonreactive (Nonreactive)
--- NOTE | 2017-03-17 20:11 | CARD ---
APPROVED REPORT EXAM: Two-dimensional and M-mode echocardiogram with Doppler and color Doppler. Other Information Quality : FairRhythm : NSR INDICATION Dyspnea Congestive Heart Failure RISK FACTORS Hypertension M-Mode DIMENSIONS RVDd0.70 (2.1-3.2cm)Left Atrium (MM)3.47 (2.5-4.0cm) IVSd1.33 (0.7-1.1cm)Aortic Root3.65 (2.2-3.7cm) LVDd5.53 (4.0-5.6cm)Aortic Cusp Exc.1.44 (1.5-2.0cm) PWd1.40 (0.7-1.1cm)FS (%) 33 % LVDs3.69 (2.0-3.8cm)LVEF (%)61 (>50%) Mitral Valve MV E Uzgrbtow316.0cm/sE/A ratio0.0 TDI E/Lateral E'0.0E/Medial E'0.0 Tricuspid Valve TR Peak [id number]/[id number] Peak [id number] LEFT VENTRICLE The left ventricle is normal size. There is mild concentric left ventricular hypertrophy. Left ventricle systolic function is normal. The Ejection Fraction is 60-65%. There is normal LV segmental wall motion. RIGHT VENTRICLE The right ventricle is normal size. There is normal right ventricular wall thickness. The right ventricular systolic function is normal. ATRIA The left atrium size is normal. The right atrium size is normal. The interatrial septum is intact with no evidence for an atrial septal defect. AORTIC VALVE The aortic valve is normal in structure. No aortic regurgitation is present. There is no aortic valvular stenosis. There is no aortic valvular vegetation. MITRAL VALVE Mitral annular calcification is moderate. There is no evidence of mitral valve prolapse. There is no mitral valve stenosis. Mitral regurgitation is mild. TRICUSPID VALVE The tricuspid valve is normal in structure. There is mild tricuspid regurgitation. Right ventricular systolic pressure is estimated at 30-40 mmHg. There is mild pulmonary hypertension. PULMONIC VALVE The pulmonic valve is not well visualized. There is no pulmonic valvular regurgitation. GREAT VESSELS The aortic root is normal in size. PERICARDIAL EFFUSION There is no significant pericardial effusion. <Conclusion> Left ventricle systolic function is normal. The Ejection Fraction is 60-65%. Hypertensive heart disease. No aortic regurgitation is present. Mitral regurgitation is mild. There is mild tricuspid regurgitation. There is mild pulmonary hypertension. There is no pulmonic valvular regurgitation.
[2017-03-18] MEDS ORDERED: Pneumococcal 23-Valent Vaccine IM ONE (10:00)
== END 2017-03-16 13:15 | disposition left against medical advice (07) | DRG 291 ==
LOC: C.ER 22:21 → C.9I 03-16 00:48
PROVIDERS: ADMIT Family Medicine; ATTEND Family Medicine
PROC: 5A1D70Z Performance of Urinary Filtration, Intermittent, Less than 6 Hours Per Day (ICD-10-PCS; principal; 2017-03-16)
DX: I13.2 Hypertensive heart and chronic kidney disease with heart failure and with stage 5 chronic kidney disease, or end stage renal disease (principal); N18.6 End stage renal disease; I42.9 Cardiomyopathy, unspecified; I16.0 Hypertensive urgency; E11.22 Type 2 diabetes mellitus with diabetic chronic kidney disease; I50.9 Heart failure, unspecified; I25.10 Atherosclerotic heart disease of native coronary artery without angina pectoris; E87.5 Hyperkalemia; Z90.49 Acquired absence of other specified parts of digestive tract; Z99.2 Dependence on renal dialysis; Z79.4 Long term (current) use of insulin; Z85.46 Personal history of malignant neoplasm of prostate; Z91.11 Patient's noncompliance with dietary regimen; Z91.14 Patient's other noncompliance with medication regimen

== ENCOUNTER 2017-09-03 10:58 | Inpatient (IN) | payer MEDICARE, OTHER ==
[2017-09-03 10:59] VITALS: BMI 25.7
[2017-09-03] MEDS ORDERED: Dextrose 50% SYRINGE Inj (50 ml) IV STA ×5 (11:58→20:51)
--- NOTE | 2017-09-03 12:24 | RAD ---
Chest x-ray single frontal view History: Diabetic. Comparison: 03/16/2017 Findings: Moderate venous congestion. Patchy bibasilar airspace opacities. Upper lobe granulomatous changes. Mild nodularity at the right lung base. Tortuous ectatic aorta. Cardiomegaly. Right paratracheal opacifications may represent prominent vasculature. Degenerative changes in the spine and shoulders. Impression: Moderate venous congestion. Patchy bibasilar airspace opacities. Upper lobe granulomatous changes. Mild nodularity at the right lung base. Tortuous ectatic aorta. Cardiomegaly. Right paratracheal opacifications may represent prominent vasculature.
[2017-09-03 12:25] LABS: BASO # 0.1 K/uL (0.0-0.2); BASO % 0.4 % (0.0-2.0); EOS % 0.3 % (0.0-4.0); HEMOGLOBIN 10.9 g/dL (12.0-18.0); LYMPH # 0.7 K/uL (1.0-4.3); LYMPH % 4.3 % (20.0-40.0); MEAN CORPUSCULAR HEMOGLOBIN 31.9 pg (27.0-31.0); MEAN CORPUSCULAR HGB CONC 32.6 g/dL (33.0-37.0); MONO # 0.8 K/uL (0.0-0.8); MONO % 4.9 % (0.0-10.0); NEUT # 14.3 K/uL (1.8-7.0); NEUT % 90.1 % (50.0-75.0); NRBC % 0.2 % (0.0-2.0); PLATELET COUNT 264 K/uL (130-400); RBC 3.42 Mil/uL (4.40-5.90); RED CELL DISTRIBUTION WIDTH 15.9 % (11.5-14.5); WHITE BLOOD COUNT 15.9 K/uL (4.8-10.8)
--- NOTE | 2017-09-03 13:03 | C.PDOC ---
History Of Present Illness 72-year-old male, PMHx includes Diabetes, is brought to the emergency department by EMS s/p fall. Patient woke up this morning with hypoglycemia, when trying to get out of bed, he fell, hitting his head. Patient is slightly confused. All other Hx limited due to clinical condition. Time Seen by Provider: 09/03/17 11:19 Chief Complaint (Nursing): Altered Mental Status History Per: Patient, EMS History/Exam Limitations: Clinical Condition Past Medical History Reviewed: Historical Data, Nursing Documentation, Vital Signs Vital Signs: Last Vital Signs Temp 98.6 F 09/03/17 11:00 Pulse 103 H 09/03/17 17:03 Resp 22 09/03/17 17:03 BP 193/89 H 09/03/17 17:03 Pulse Ox 96 09/03/17 18:15 - Medical History PMH: CAD, Cardia Arrhythmia, Diabetes, Gall Bladder Disease, HTN, Chronic Kidney Disease Surgical History: Cholecystectomy, Tonsillectomy - [facility] (03/16/17) INTRAOPER CHOLANGIOGRAM (10/15/13) LAPAROSCOPIC CHOLECYSTECTOMY (10/15/13) Family History: States: No Known Family Hx - Social History Hx Tobacco Use: No Hx Alcohol Use: No Hx Substance Use: No - Immunization History Hx Tetanus Toxoid Vaccination: No Hx Influenza Vaccination: Yes Hx Pneumococcal Vaccination: No Review Of Systems Review Of Systems: ROS cannot be obtained secondary to pt's inabilty to answer questions. Neurological: Positive for: Confusion, Headache Physical Exam - Physical Exam Appears: Confused, Chronically Ill Skin: Warm, Dry, No Rash Head: Normacephalic, Laceration (2cm, superficial to right occiput) Eye(s): bilateral: PERRL, EOMI Ear(s): Bilateral: Normal Nose: Normal Oral Mucosa: Moist Lips: Normal Appearing Throat: No Erythema, No Exudate Neck: Normal ROM, No Midline Cervical Tenderness, No Paracervical Tenderness, Supple Chest: Symmetrical, No Tenderness Cardiovascular: Rhythm Regular, No Friction Rub, No Murmur Respiratory: Normal Breath Sounds, No Accessory Muscle Use Gastrointestinal/Abdominal: Bowel Sounds (active), Soft, No Tenderness Back: Normal Inspection, No CVA Tenderness Extremity: Normal ROM, No Deformity, No Swelling Neurological/Psych: Normal Motor, Other (oriented x2) ED Course And Treatment - Laboratory Results Result Diagrams: 09/03/17 12:07 09/03/17 13:21 ECG: Interpreted By Me, Viewed By Me ECG Rhythm: L BBB ECG Interpretation: No Changes From Prior (04/15/17) Rate From EC O2 Sat by Pulse Oximetry: 96 (RA) Pulse Ox Interpretation: Normal Critical Care Time - Critical Care Note Total Time (in mins): 50 Comments: Patient has had multiple neuro checks and has had drop in glucose which required over 6 doses of IV dextrose. CT head was ordered for head trauma, whic revealed a subdural hemorrhage. The case was discussed and the patient was evaluated by Dr. Bernal (Neurosurgeon) who states that there is no need for intervention at this time and is requesting ICU eval. Dr. Nguyen has evaluated the patient and agrees the patient needs ICU. Patient also needs dialysis today. Consult for Dr. Haylee tarango (Nephro oncall) Documented critical care: time excludes all time spent performing seperately billable procedures. Medical Decision Making Medical Decision Making: Plan: * CT Head/C-Spine * Bloodwork * Chest X-Ray * Metoprolol, D50 Hypertensive, patient given Lopressor IV. Disposition - Disposition Disposition: HOSPITALIZED Disposition Time: 16:36 Condition: STABLE - POA Present On Arrival: Poor Glycemic Control - Clinical Impression Clinical Impression: Subdural hemorrhage, Hypoglycemia, Hypertension - Scribe Statement The provider has reviewed the documentation as recorded by the Scribe ([place]) All medical record entries made by the Scribe were at my direction and personally dictated by me. I have reviewed the chart and agree that the record accurately reflects my personal performance of the history, physical exam, medical decision making, and the department course for this patient. I have also personally directed, reviewed, and agree with the discharge instructions and disposition.
[2017-09-03 13:04] LABS: ANISOCYTOSIS SLIGHT; BASOPHIL 1 % (0-2); LYMPHOCYTE 4 % (20-40); MONOCYTE 5 % (0-10); NEUTROPHIL 90 % (50-75); PLATELET ESTIMATE NORMAL (NORMAL); TOTAL CELLS COUNTED 100
[2017-09-03] MEDS ORDERED: Dextrose 50% VIAL Inj (50 ml) IV ONE ×4 (13:27→19:52)
[2017-09-03 13:55] LABS: CK-MB 3.84 ng/mL (0.0-3.38)
[2017-09-03 14:04] LABS: ALBUMIN 3.8 g/dL (3.5-5.0); ALT/SGPT 11 U/L (21-72); AST/SGOT 50 U/L (17-59); BLOOD UREA NITROGEN 63 mg/dL (9-20); CALCIUM 8.9 mg/dl (8.6-10.4)
[2017-09-03] MEDS ORDERED: Metoprolol 1 mg/ml Inj IVP ONE ×2 (14:19→14:21)
[2017-09-03] MEDS ORDERED: Metoprolol 1 mg/ml Inj IVP STA (14:22)
[2017-09-03 14:26] LABS: GFR AFRICAN-AMERICAN 6; GFR NON-AFRICAN AMERICAN 5
--- NOTE | 2017-09-03 14:27 | CT ---
PROCEDURE: CT HEAD WITHOUT CONTRAST. HISTORY: head injury, AMS COMPARISON: None available. TECHNIQUE: Axial computed tomography images were obtained through the head/brain without intravenous contrast. Radiation dose: Total exam DLP = 994.92 mGy-cm. This CT exam was performed using one or more of the following dose reduction techniques: Automated exposure control, adjustment of the mA and/or kV according to patient size, and/or use of iterative reconstruction technique. FINDINGS: HEMORRHAGE: There is acute right frontal subdural hemorrhage, up to 9 mm in width at its greatest width. There is no subarachnoid hemorrhage. There is no parenchymal or intraventricular hemorrhage. BRAIN: No intracranial mass identified. Mild periventricular white matter lucency is noted consistent with chronic microvascular ischemic change. Patchy chronic white matter ischemic change is also noted in the deep white matter bilaterally. There is no evidence of acute infarct. VENTRICLES: No hydrocephalus. There is 1-2 mm midline shift towards the left. There is no evidence of downward herniation. The basilar cisterns are preserved. There is no cerebellar tonsillar herniation. CALVARIUM: Unremarkable. PARANASAL SINUSES: Minimal dependent fluid/mucosal thickening in left maxillary antrum common nonspecific. Possible chronic sinusitis. MASTOID AIR CELLS: Unremarkable as visualized. No inflammatory changes. OTHER FINDINGS: None. IMPRESSION: Acute right frontal subdural hemorrhage, up to 9 mm in width. 1-2 mm midline shift towards the left. No parenchymal hemorrhage identified. These findings were discussed by telephone with FOUZIA Hahn, at 2:25 p.m. on 09/03/2017.
--- NOTE | 2017-09-03 14:48 | CT ---
PROCEDURE: CT Cervical Spine without contrast HISTORY: Trauma. Fall. COMPARISON: None available TECHNIQUE: Axial computed tomography images were obtained of the cervical spine without the use of intravenous contrast. Coronal and sagittal reformatted images were created and reviewed. Radiation dose: Total exam DLP = 415.60 mGy-cm. This CT exam was performed using one or more of the following dose reduction techniques: Automated exposure control, adjustment of the mA and/or kV according to patient size, and/or use of iterative reconstruction technique. FINDINGS: VERTEBRAE: Vertebral bodies maintained in height. There is levo scoliotic curvature of the cervical spine. There is no listhesis. The atlantoaxial articulation and odontoid process are intact. DISCS/SPINAL CANAL/NEURAL FORAMINA: There is narrowing of the C5-6 and C6-7 intervertebral disc spaces with large osteophytes, consistent with degenerative disc disease. Multilevel bilateral neural foraminal stenosis is noted. PARASPINAL SOFT TISSUES: Unremarkable. OTHER FINDINGS: Go ill-defined ground-glass opacity in the right lung apex common nonspecific. Followup advised. IMPRESSION: No fracture/ dislocation. Multilevel degenerative disc disease and multilevel bilateral neural foraminal stenosis. Mild levoscoliosis. Incidental ground-glass opacity in right lung apex common nonspecific. Followup to rule out neoplasm.
[2017-09-03] MEDS ORDERED: Dextrose 50% SYRINGE Inj (50 ml) IVP STA ×2 (15:10→16:37)
[2017-09-03] MEDS ORDERED: Dextrose 5%/0.9% NS 1,000 ML IV SCH (17:15)
--- NOTE | 2017-09-03 17:17 | CP.PCM.HP ---
Past Patient History - Past Medical History & Family History Past Medical History?: Yes - Past Social History Smoking Status: Never Smoked - CARDIAC Hx Cardia Arrhythmia: Yes Hx Hypertension: Yes - PULMONARY Hx Respiratory Disorders: No - NEUROLOGICAL Hx Neurological Disorder: No - HEENT Hx HEENT Problems: Yes Other/Comment: RINGING RIGHT EAR - RENAL Hx Chronic Kidney Disease: Yes - ENDOCRINE/METABOLIC Hx Endocrine Disorders: Yes Hx Diabetes Mellitus Type 2: Yes - HEMATOLOGICAL/ONCOLOGICAL Hx Blood Disorders: Yes Hx Cancer: Yes (PROSTATE) - INTEGUMENTARY Hx Dermatological Problems: No - MUSCULOSKELETAL/RHEUMATOLOGICAL Hx Musculoskeletal Disorders: Yes Hx Falls: Yes - GASTROINTESTINAL Hx Gall Bladder Disease: Yes - GENITOURINARY/GYNECOLOGICAL Hx Genitourinary Disorders: Yes Hx Prostate Cancer: Yes Other/Comment: POST URINARY FREQUENCT PROSTATE SX SURGERY ON URETHRA NO LONGER FREQUENCY - PSYCHIATRIC Hx Substance Use: No - SURGICAL HISTORY Hx Cholecystectomy: Yes Hx Tonsillectomy: Yes - ANESTHESIA Hx Anesthesia: Yes Hx Anesthesia Reactions: No Meds Allergies/Adverse Reactions: Allergies Allergy/AdvReac Type Severity Reaction Status Date / Time No Known Allergies Allergy Verified 09/03/17 11:40 Results - Vital Signs Recent Vital Signs: Last Vital Signs Temp 98.6 F 09/03/17 11:00 Pulse 103 H 09/03/17 17:03 Resp 22 09/03/17 17:03 BP 193/89 H 09/03/17 17:03 Pulse Ox 96 09/03/17 17:03 - Labs Result Diagrams: 09/03/17 12:07 09/03/17 13:21 Labs: Laboratory Results - last 24 hr 09/03/17 09/03/17 09/03/17 11:05 11:06 12:07 WBC 15.9 H RBC 3.42 L Hgb 10.9 L Hct 33.5 L MCV 98.0 H D MCH 31.9 H MCHC 32.6 L RDW 15.9 H Plt Count 264 D MPV 11.0 Neut % (Auto) 90.1 H Lymph % (Auto) 4.3 L [place] % (Auto) 4.9 Eos % (Auto) 0.3 Baso % (Auto) 0.4 Neut # (Auto) 14.3 H Lymph # (Auto) 0.7 L [place] # (Auto) 0.8 Eos # (Auto) 0.0 Baso # (Auto) 0.1 Neutrophils % (Manual) 90 H Lymphocytes % (Manual) 4 L Monocytes % (Manual) 5 Basophils % (Manual) 1 Platelet Estimate Normal Anisocytosis (manual) Slight Sodium Potassium Chloride Carbon Dioxide Anion Gap BUN Creatinine Est GFR ( Amer) Est GFR (Non-Af Amer) POC Glucose (mg/dL) 64 L 69 Random Glucose Calcium Total Bilirubin AST ALT Alkaline Phosphatase Total Creatine Kinase CK-MB (Mass) Troponin I Total Protein Albumin Globulin Albumin/Globulin Ratio Serum Ketones 09/03/17 09/03/17 09/03/17 13:21 14:40 15:45 WBC RBC Hgb Hct MCV MCH MCHC RDW Plt Count MPV Neut % (Auto) Lymph % (Auto) [place] % (Auto) Eos % (Auto) Baso % (Auto) Neut # (Auto) Lymph # (Auto) [place] # (Auto) Eos # (Auto) Baso # (Auto) Neutrophils % (Manual) Lymphocytes % (Manual) Monocytes % (Manual) Basophils % (Manual) Platelet Estimate Anisocytosis (manual) Sodium 138 Potassium 5.5 H Chloride 100 Carbon Dioxide 21 L Anion Gap 22 H BUN 63 H Creatinine 10.0 H* D Est GFR ( Amer) 6 Est GFR (Non-Af Amer) 5 POC Glucose (mg/dL) 80 108 Random Glucose 34 L* D Calcium 8.9 Total Bilirubin 0.5 AST 50 ALT 11 L D Alkaline Phosphatase 51 Total Creatine Kinase 737 H CK-MB (Mass) 3.84 H Troponin I 0.1190 Total Protein 7.5 Albumin 3.8 Globulin 3.7 Albumin/Globulin Ratio 1.0 Serum Ketones Negative 09/03/17 09/03/17 16:30 17:09 WBC RBC Hgb Hct MCV MCH MCHC RDW Plt Count MPV Neut % (Auto) Lymph % (Auto) [place] % (Auto) Eos % (Auto) Baso % (Auto) Neut # (Auto) Lymph # (Auto) [place] # (Auto) Eos # (Auto) Baso # (Auto) Neutrophils % (Manual) Lymphocytes % (Manual) Monocytes % (Manual) Basophils % (Manual) Platelet Estimate Anisocytosis (manual) Sodium Potassium Chloride Carbon Dioxide Anion Gap BUN Creatinine Est GFR ( Amer) Est GFR (Non-Af Amer) POC Glucose (mg/dL) < 20 L* 52 L Random Glucose Calcium Total Bilirubin AST ALT Alkaline Phosphatase Total Creatine Kinase CK-MB (Mass) Troponin I Total Protein Albumin Globulin Albumin/Globulin Ratio Serum Ketones
[2017-09-03] MEDS ORDERED: Nitroglycerin 50mg in D5W 50 MG/250 ML BOTTLE IV SCH (17:45)
[2017-09-03] MEDS ORDERED: Nitroglycerin 50mg in D5W 50 MG/250 ML BOTTLE IV ONE (18:29)
--- NOTE | 2017-09-03 19:34 | CP.PCM.CON ---
History of Present Illness - History of Present Illness History of Present Illness: Critical Care Consult for Dr. Nguyen This is a 72 year old male with ESRD (on HD MWF), DM, HTN, Prostate CA who presented due to hypoglycemia. Patient reportedly fell out of his bed and hit his head. Patient diagnosed with subdural hematoma due to the fall. Patient complaining of general malaise, palpitations, and tremors. PMD: [place] PMHx: End stage renal disease (dialysis MWF), diabetes, hypertension, prostate cancer PSHx: prostate, cholecystectomy, AVF in left arm Allergies: NKDA Social: denies smoking, denies alcohol use, lives with Review of Systems - Constitutional Constitutional: absent: Chills, Fever - EENT Eyes: absent: Change in Vision Ears: absent: Decreased Hearing Nose/Mouth/Throat: absent: Nasal Congestion - Cardiovascular Cardiovascular: absent: Chest Pain - Respiratory Respiratory: absent: Dyspnea - Gastrointestinal Gastrointestinal: absent: Abdominal Pain - Genitourinary Genitourinary: absent: Dysuria - Musculoskeletal Musculoskeletal: absent: Back Pain - Integumentary Integumentary: absent: Rash - Neurological Neurological: Tremor - Psychiatric Psychiatric: Anxiety - Endocrine Endocrine: Palpitations Past Patient History - Past Medical History & Family History Past Medical History?: Yes - Past Social History Smoking Status: Never Smoked - CARDIAC Hx Cardia Arrhythmia: Yes Hx Hypertension: Yes - PULMONARY Hx Respiratory Disorders: No - NEUROLOGICAL Hx Neurological Disorder: No - HEENT Hx HEENT Problems: Yes Other/Comment: RINGING RIGHT EAR - RENAL Hx Chronic Kidney Disease: Yes - ENDOCRINE/METABOLIC Hx Endocrine Disorders: Yes Hx Diabetes Mellitus Type 2: Yes - HEMATOLOGICAL/ONCOLOGICAL Hx Blood Disorders: Yes Hx Cancer: Yes (PROSTATE) - INTEGUMENTARY Hx Dermatological Problems: No - MUSCULOSKELETAL/RHEUMATOLOGICAL Hx Musculoskeletal Disorders: Yes Hx Falls: Yes - GASTROINTESTINAL Hx Gall Bladder Disease: Yes - GENITOURINARY/GYNECOLOGICAL Hx Genitourinary Disorders: Yes Hx Prostate Cancer: Yes Other/Comment: POST URINARY FREQUENCT PROSTATE SX SURGERY ON URETHRA NO LONGER FREQUENCY - PSYCHIATRIC Hx Substance Use: No - SURGICAL HISTORY Hx Cholecystectomy: Yes Hx Tonsillectomy: Yes - ANESTHESIA Hx Anesthesia: Yes Hx Anesthesia Reactions: No Meds Allergies/Adverse Reactions: Allergies Allergy/AdvReac Type Severity Reaction Status Date / Time No Known Allergies Allergy Verified 09/03/17 11:40 - Medications Medications: Current Medications Nitroglycerin/Dextrose (Nitroglycerin 50 Mg/250 Ml D5w) 50 mg in 250 mls @ 1.5 mls/hr IV .Q24H SINDI; 5 MCG/MIN PRN Reason: Protocol Last Admin: 09/03/17 18:32 Dose: 5 mcg/min, 1.5 mls/hr Dextrose (Dextrose 10% In Water) 500 mls @ 60 mls/hr IV .Q8H20M SINDI Last Admin: 09/03/17 18:52 Dose: 60 mls/hr Pantoprazole Sodium (Protonix Inj) 40 mg IVP DAILY SINDI Physical Exam - Constitutional Appears: In Acute Distress - Head Exam Head Exam: ATRAUMATIC, NORMOCEPHALIC - Eye Exam Eye Exam: EOMI, PERRL - ENT Exam ENT Exam: Mucous Membranes Dry - Respiratory Exam Respiratory Exam: Clear to Auscultation Bilateral. absent: Rales, Rhonchi, Wheezes - Cardiovascular Exam Cardiovascular Exam: REGULAR RHYTHM, +S1, +S2 - GI/Abdominal Exam GI & Abdominal Exam: Normal Bowel Sounds, Soft. absent: Tenderness - Extremities Exam Extremities exam: Negative for: pedal edema - Neurological Exam Neurological exam: Alert, CN II-XII Intact, Oriented x3 - Psychiatric Exam Psychiatric exam: Anxious - Skin Skin Exam: Dry, Warm Results - Vital Signs Recent Vital Signs: Last Vital Signs Temp 98.6 F 09/03/17 11:00 Pulse 113 H 09/03/17 18:42 Resp 24 09/03/17 18:42 BP 194/95 H 09/03/17 18:42 Pulse Ox 98 09/03/17 18:42 - Labs Result Diagrams: 09/03/17 12:07 09/03/17 13:21 Labs: Laboratory Results - last 24 hr 09/03/17 09/03/17 09/03/17 11:05 11:06 12:07 WBC 15.9 H RBC 3.42 L Hgb 10.9 L Hct 33.5 L MCV 98.0 H D MCH 31.9 H MCHC 32.6 L RDW 15.9 H Plt Count 264 D MPV 11.0 Neut % (Auto) 90.1 H Lymph % (Auto) 4.3 L [place] % (Auto) 4.9 Eos % (Auto) 0.3 Baso % (Auto) 0.4 Neut # (Auto) 14.3 H Lymph # (Auto) 0.7 L [place] # (Auto) 0.8 Eos # (Auto) 0.0 Baso # (Auto) 0.1 Neutrophils % (Manual) 90 H Lymphocytes % (Manual) 4 L Monocytes % (Manual) 5 Basophils % (Manual) 1 Platelet Estimate Normal Anisocytosis (manual) Slight Sodium Potassium Chloride Carbon Dioxide Anion Gap BUN Creatinine Est GFR ( Amer) Est GFR (Non-Af Amer) POC Glucose (mg/dL) 64 L 69 Random Glucose Calcium Total Bilirubin AST ALT Alkaline Phosphatase Total Creatine Kinase CK-MB (Mass) Troponin I Total Protein Albumin Globulin Albumin/Globulin Ratio Serum Ketones 09/03/17 09/03/17 09/03/17 13:21 14:40 15:45 WBC RBC Hgb Hct MCV MCH MCHC RDW Plt Count MPV Neut % (Auto) Lymph % (Auto) [place] % (Auto) Eos % (Auto) Baso % (Auto) Neut # (Auto) Lymph # (Auto) [place] # (Auto) Eos # (Auto) Baso # (Auto) Neutrophils % (Manual) Lymphocytes % (Manual) Monocytes % (Manual) Basophils % (Manual) Platelet Estimate Anisocytosis (manual) Sodium 138 Potassium 5.5 H Chloride 100 Carbon Dioxide 21 L Anion Gap 22 H BUN 63 H Creatinine 10.0 H* D Est GFR ( Amer) 6 Est GFR (Non-Af Amer) 5 POC Glucose (mg/dL) 80 108 Random Glucose 34 L* D Calcium 8.9 Total Bilirubin 0.5 AST 50 ALT 11 L D Alkaline Phosphatase 51 Total Creatine Kinase 737 H CK-MB (Mass) 3.84 H Troponin I 0.1190 Total Protein 7.5 Albumin 3.8 Globulin 3.7 Albumin/Globulin Ratio 1.0 Serum Ketones Negative 09/03/17 09/03/17 16:30 17:09 WBC RBC Hgb Hct MCV MCH MCHC RDW Plt Count MPV Neut % (Auto) Lymph % (Auto) [place] % (Auto) Eos % (Auto) Baso % (Auto) Neut # (Auto) Lymph # (Auto) [place] # (Auto) Eos # (Auto) Baso # (Auto) Neutrophils % (Manual) Lymphocytes % (Manual) Monocytes % (Manual) Basophils % (Manual) Platelet Estimate Anisocytosis (manual) Sodium Potassium Chloride Carbon Dioxide Anion Gap BUN Creatinine Est GFR ( Amer) Est GFR (Non-Af Amer) POC Glucose (mg/dL) < 20 L* 52 L Random Glucose Calcium Total Bilirubin AST ALT Alkaline Phosphatase Total Creatine Kinase CK-MB (Mass) Troponin I Total Protein Albumin Globulin Albumin/Globulin Ratio Serum Ketones Assessment & Plan - Assessment and Plan (Free Text) Assessment: This is a 72 year old male with ESRD (on HD MWF), DM, HTN, Prostate CA who presented due to hypoglycemia. He was also diagnosed with a subdural hematoma. Neuro Awake, verbal Per neurosurgery, no intervention on admission Cardio Nitro drip Pulm Saturating well Endocrine Accuchecks Q1H Renal Nephro consulted for HD Prophylaxis Protonix 40 mg IV daily D5W 60 cc/hr Right femoral TLC placed Discussed with Dr. Nguyen
--- NOTE | 2017-09-03 19:41 | PCM.PROC ---
Procedures Attestation:: I certify that I have explained the specified Operation(s) or Procedure(s), risks, benefits and reasonable alternatives to the Patient and/or other person responsible. The opportunity was given to ask questions and all questions answered - Central Line Placement Right Femoral Triple Lumen Catheter Aseptic technique was employed throughout the procedure: Hand Hygiene done prior to procedure, Full sterile barriers (mask, hair cover, sterile gown, sterile gloves), Full body sterile drape, Chloraprep Antiseptic: 2 minute prep for Femoral Central Line Prep: Chlorhexidine-Alcohol Combination Local Anesthesia Used: Lidocaine 2% Ultrasound Used for Placement: Yes Central Line Lumen Inserted: triple Post Procedure: Sutured in Place, Good Blood Return, All Ports Aspirated, Flushed, Capped Secured by: Suture Post procedure dressing: Chlorhexidine disc (Biopatch) Post Procedure X-Ray: Yes Patient Tolerated Procedure: Well Immediate Complications: None
--- NOTE | 2017-09-03 19:43 | CP.PCM.HP ---
<Dustin Heck - Last Filed: 09/03/17 19:41> History of Present Illness - History of Present Illness History of Present Illness: PGY-1 H&P for Dr. Treviño This is a 72 year old male with ESRD (on HD MWF), DM, HTN, Prostate CA who presented due to hypoglycemia. Patient reportedly fell out of his bed and hit his head. Patient diagnosed with subdural hematoma due to the fall. Patient complaining of general malaise, palpitations, and tremors. PMD: Sandeep PMHx: End stage renal disease (dialysis MWF), diabetes, hypertension, prostate cancer PSHx: prostate, cholecystectomy, AVF in left arm Allergies: NKDA Social: denies smoking, denies alcohol use, lives with Present on Admission - Present on Admission Any Indicators Present on Admission: No Review of Systems - Constitutional Constitutional: absent: Chills, Fever - EENT Eyes: absent: Change in Vision Ears: absent: Decreased Hearing Nose/Mouth/Throat: absent: Nasal Congestion - Cardiovascular Cardiovascular: absent: Chest Pain - Respiratory Respiratory: absent: Dyspnea - Gastrointestinal Gastrointestinal: absent: Abdominal Pain - Genitourinary Genitourinary: absent: Dysuria - Musculoskeletal Musculoskeletal: absent: Back Pain - Integumentary Integumentary: absent: Rash - Neurological Neurological: Tremor - Psychiatric Psychiatric: Anxiety - Endocrine Endocrine: Palpitations Past Patient History - Past Medical History & Family History Past Medical History?: Yes - Past Social History Smoking Status: Never Smoked - CARDIAC Hx Cardia Arrhythmia: Yes Hx Hypertension: Yes - PULMONARY Hx Respiratory Disorders: No - NEUROLOGICAL Hx Neurological Disorder: No - HEENT Hx HEENT Problems: Yes Other/Comment: RINGING RIGHT EAR - RENAL Hx Chronic Kidney Disease: Yes - ENDOCRINE/METABOLIC Hx Endocrine Disorders: Yes Hx Diabetes Mellitus Type 2: Yes - HEMATOLOGICAL/ONCOLOGICAL Hx Blood Disorders: Yes Hx Cancer: Yes (PROSTATE) - INTEGUMENTARY Hx Dermatological Problems: No - MUSCULOSKELETAL/RHEUMATOLOGICAL Hx Musculoskeletal Disorders: Yes Hx Falls: Yes - GASTROINTESTINAL Hx Gall Bladder Disease: Yes - GENITOURINARY/GYNECOLOGICAL Hx Genitourinary Disorders: Yes Hx Prostate Cancer: Yes Other/Comment: POST URINARY FREQUENCT PROSTATE SX SURGERY ON URETHRA NO LONGER FREQUENCY - PSYCHIATRIC Hx Substance Use: No - SURGICAL HISTORY Hx Cholecystectomy: Yes Hx Tonsillectomy: Yes - ANESTHESIA Hx Anesthesia: Yes Hx Anesthesia Reactions: No Meds Allergies/Adverse Reactions: Allergies Allergy/AdvReac Type Severity Reaction Status Date / Time No Known Allergies Allergy Verified 09/03/17 11:40 Physical Exam - Additional Findings Additional findings: - Constitutional Appears: In Acute Distress - Head Exam Head Exam: ATRAUMATIC, NORMOCEPHALIC - Eye Exam Eye Exam: EOMI, PERRL - ENT Exam ENT Exam: Mucous Membranes Dry - Respiratory Exam Respiratory Exam: Clear to Auscultation Bilateral. absent: Rales, Rhonchi, Wheezes - Cardiovascular Exam Cardiovascular Exam: REGULAR RHYTHM, +S1, +S2 - GI/Abdominal Exam GI & Abdominal Exam: Normal Bowel Sounds, Soft. absent: Tenderness - Extremities Exam Extremities exam: Negative for: pedal edema - Neurological Exam Neurological exam: Alert, CN II-XII Intact, Oriented x3 - Psychiatric Exam Psychiatric exam: Anxious - Skin Skin Exam: Dry, Warm Results - Vital Signs Recent Vital Signs: Last Vital Signs Temp 98.6 F 09/03/17 11:00 Pulse 113 H 09/03/17 18:42 Resp 24 09/03/17 18:42 BP 194/95 H 09/03/17 18:42 Pulse Ox 98 09/03/17 18:42 - Labs Result Diagrams: 09/03/17 12:07 09/03/17 13:21 Labs: Laboratory Results - last 24 hr 09/03/17 09/03/17 09/03/17 11:05 11:06 12:07 WBC 15.9 H RBC 3.42 L Hgb 10.9 L Hct 33.5 L MCV 98.0 H D MCH 31.9 H MCHC 32.6 L RDW 15.9 H Plt Count 264 D MPV 11.0 Neut % (Auto) 90.1 H Lymph % (Auto) 4.3 L [place] % (Auto) 4.9 Eos % (Auto) 0.3 Baso % (Auto) 0.4 Neut # (Auto) 14.3 H Lymph # (Auto) 0.7 L [place] # (Auto) 0.8 Eos # (Auto) 0.0 Baso # (Auto) 0.1 Neutrophils % (Manual) 90 H Lymphocytes % (Manual) 4 L Monocytes % (Manual) 5 Basophils % (Manual) 1 Platelet Estimate Normal Anisocytosis (manual) Slight Sodium Potassium Chloride Carbon Dioxide Anion Gap BUN Creatinine Est GFR ( Amer) Est GFR (Non-Af Amer) POC Glucose (mg/dL) 64 L 69 Random Glucose Calcium Total Bilirubin AST ALT Alkaline Phosphatase Total Creatine Kinase CK-MB (Mass) Troponin I Total Protein Albumin Globulin Albumin/Globulin Ratio Serum Ketones 09/03/17 09/03/17 09/03/17 13:21 14:40 15:45 WBC RBC Hgb Hct MCV MCH MCHC RDW Plt Count MPV Neut % (Auto) Lymph % (Auto) [place] % (Auto) Eos % (Auto) Baso % (Auto) Neut # (Auto) Lymph # (Auto) [place] # (Auto) Eos # (Auto) Baso # (Auto) Neutrophils % (Manual) Lymphocytes % (Manual) Monocytes % (Manual) Basophils % (Manual) Platelet Estimate Anisocytosis (manual) Sodium 138 Potassium 5.5 H Chloride 100 Carbon Dioxide 21 L Anion Gap 22 H BUN 63 H Creatinine 10.0 H* D Est GFR ( Amer) 6 Est GFR (Non-Af Amer) 5 POC Glucose (mg/dL) 80 108 Random Glucose 34 L* D Calcium 8.9 Total Bilirubin 0.5 AST 50 ALT 11 L D Alkaline Phosphatase 51 Total Creatine Kinase 737 H CK-MB (Mass) 3.84 H Troponin I 0.1190 Total Protein 7.5 Albumin 3.8 Globulin 3.7 Albumin/Globulin Ratio 1.0 Serum Ketones Negative 09/03/17 09/03/17 09/03/17 16:30 17:09 18:46 WBC RBC Hgb Hct MCV MCH MCHC RDW Plt Count MPV Neut % (Auto) Lymph % (Auto) [place] % (Auto) Eos % (Auto) Baso % (Auto) Neut # (Auto) Lymph # (Auto) [place] # (Auto) Eos # (Auto) Baso # (Auto) Neutrophils % (Manual) Lymphocytes % (Manual) Monocytes % (Manual) Basophils % (Manual) Platelet Estimate Anisocytosis (manual) Sodium Potassium Chloride Carbon Dioxide Anion Gap BUN Creatinine Est GFR ( Amer) Est GFR (Non-Af Amer) POC Glucose (mg/dL) < 20 L* 52 L < 20 L* Random Glucose Calcium Total Bilirubin AST ALT Alkaline Phosphatase Total Creatine Kinase CK-MB (Mass) Troponin I Total Protein Albumin Globulin Albumin/Globulin Ratio Serum Ketones 09/03/17 18:49 WBC RBC Hgb Hct MCV MCH MCHC RDW Plt Count MPV Neut % (Auto) Lymph % (Auto) [place] % (Auto) Eos % (Auto) Baso % (Auto) Neut # (Auto) Lymph # (Auto) [place] # (Auto) Eos # (Auto) Baso # (Auto) Neutrophils % (Manual) Lymphocytes % (Manual) Monocytes % (Manual) Basophils % (Manual) Platelet Estimate Anisocytosis (manual) Sodium Potassium Chloride Carbon Dioxide Anion Gap BUN Creatinine Est GFR ( Amer) Est GFR (Non-Af Amer) POC Glucose (mg/dL) < 20 L* Random Glucose Calcium Total Bilirubin AST ALT Alkaline Phosphatase Total Creatine Kinase CK-MB (Mass) Troponin I Total Protein Albumin Globulin Albumin/Globulin Ratio Serum Ketones Assessment & Plan - Assessment and Plan (Free Text) Assessment: This is a 72 year old male with ESRD (on HD MWF), DM, HTN, Prostate CA who presented due to hypoglycemia. He was also diagnosed with a subdural hematoma. Neuro Awake, verbal Per neurosurgery, no intervention on admission Cardio Nitro drip Pulm Saturating well Endocrine Accuchecks Q1H Renal Nephro consulted for HD Prophylaxis Protonix 40 mg IV daily D5W 60 cc/hr Right femoral TLC placed <KamilaPeter H - Last Filed: 09/04/17 14:55> Results - Vital Signs Recent Vital Signs: Last Vital Signs Temp 98 F 09/04/17 04:00 Pulse 105 H 09/04/17 07:00 Resp 12 09/04/17 07:00 BP 148/81 09/04/17 04:02 Pulse Ox 86 L 09/04/17 00:59 - Labs Result Diagrams: 09/04/17 06:12 09/04/17 06:14 Labs: Laboratory Results - last 24 hr 09/03/17 09/03/17 09/03/17 12:07 13:21 14:40 WBC RBC Hgb Hct MCV MCH MCHC RDW Plt Count MPV Neutrophils % (Manual) 90 H Lymphocytes % (Manual) 4 L Monocytes % (Manual) 5 Basophils % (Manual) 1 Platelet Estimate Normal Anisocytosis (manual) Slight Sodium 138 Potassium 5.5 H Chloride 100 Carbon Dioxide 21 L Anion Gap 22 H BUN 63 H Creatinine 10.0 H* D Est GFR ( Amer) 6 Est GFR (Non-Af Amer) 5 POC Glucose (mg/dL) 80 Random Glucose 34 L* D Hemoglobin A1c Calcium 8.9 Total Bilirubin 0.5 AST 50 ALT 11 L D Alkaline Phosphatase 51 Total Creatine Kinase 737 H CK-MB (Mass) 3.84 H Troponin I 0.1190 Total Protein 7.5 Albumin 3.8 Globulin 3.7 Albumin/Globulin Ratio 1.0 Serum Ketones Negative 09/03/17 09/03/17 09/03/17 15:45 16:30 17:09 WBC RBC Hgb Hct MCV MCH MCHC RDW Plt Count MPV Neutrophils % (Manual) Lymphocytes % (Manual) Monocytes % (Manual) Basophils % (Manual) Platelet Estimate Anisocytosis (manual) Sodium Potassium Chloride Carbon Dioxide Anion Gap BUN Creatinine Est GFR ( Amer) Est GFR (Non-Af Amer) POC Glucose (mg/dL) 108 < 20 L* 52 L Random Glucose Hemoglobin A1c Calcium Total Bilirubin AST ALT Alkaline Phosphatase Total Creatine Kinase CK-MB (Mass) Troponin I Total Protein Albumin Globulin Albumin/Globulin Ratio Serum Ketones 09/03/17 09/03/17 09/03/17 18:46 18:49 19:40 WBC RBC Hgb Hct MCV MCH MCHC RDW Plt Count MPV Neutrophils % (Manual) Lymphocytes % (Manual) Monocytes % (Manual) Basophils % (Manual) Platelet Estimate Anisocytosis (manual) Sodium Potassium Chloride Carbon Dioxide Anion Gap BUN Creatinine Est GFR ( Amer) Est GFR (Non-Af Amer) POC Glucose (mg/dL) < 20 L* < 20 L* 40 L Random Glucose Hemoglobin A1c Calcium Total Bilirubin AST ALT Alkaline Phosphatase Total Creatine Kinase CK-MB (Mass) Troponin I Total Protein Albumin Globulin Albumin/Globulin Ratio Serum Ketones 09/03/17 09/03/17 09/03/17 20:23 20:47 22:01 WBC RBC Hgb Hct MCV MCH MCHC RDW Plt Count MPV Neutrophils % (Manual) Lymphocytes % (Manual) Monocytes % (Manual) Basophils % (Manual) Platelet Estimate Anisocytosis (manual) Sodium Potassium Chloride Carbon Dioxide Anion Gap BUN Creatinine Est GFR ( Amer) Est GFR (Non-Af Amer) POC Glucose (mg/dL) 71 44 L 75 Random Glucose Hemoglobin A1c Calcium Total Bilirubin AST ALT Alkaline Phosphatase Total Creatine Kinase CK-MB (Mass) Troponin I Total Protein Albumin Globulin Albumin/Globulin Ratio Serum Ketones 09/03/17 09/04/17 09/04/17 22:58 00:09 00:13 WBC RBC Hgb Hct MCV MCH MCHC RDW Plt Count MPV Neutrophils % (Manual) Lymphocytes % (Manual) Monocytes % (Manual) Basophils % (Manual) Platelet Estimate Anisocytosis (manual) Sodium Potassium Chloride Carbon Dioxide Anion Gap BUN Creatinine Est GFR ( Amer) Est GFR (Non-Af Amer) POC Glucose (mg/dL) 73 60 L 63 L Random Glucose Hemoglobin A1c Calcium Total Bilirubin AST ALT Alkaline Phosphatase Total Creatine Kinase CK-MB (Mass) Troponin I Total Protein Albumin Globulin Albumin/Globulin Ratio Serum Ketones 09/04/17 09/04/17 09/04/17 00:55 02:00 04:01 WBC RBC Hgb Hct MCV MCH MCHC RDW Plt Count MPV Neutrophils % (Manual) Lymphocytes % (Manual) Monocytes % (Manual) Basophils % (Manual) Platelet Estimate Anisocytosis (manual) Sodium Potassium Chloride Carbon Dioxide Anion Gap BUN Creatinine Est GFR ( Amer) Est GFR (Non-Af Amer) POC Glucose (mg/dL) 189 H 199 H 201 H Random Glucose Hemoglobin A1c Calcium Total Bilirubin AST ALT Alkaline Phosphatase Total Creatine Kinase CK-MB (Mass) Troponin I Total Protein Albumin Globulin Albumin/Globulin Ratio Serum Ketones 09/04/17 09/04/17 09/04/17 06:12 06:12 06:14 WBC 9.1 RBC 2.67 L Hgb 8.8 L D Hct 26.1 L MCV 97.8 H MCH 33.0 H MCHC 33.7 RDW 16.0 H Plt Count 159 D MPV 9.8 Neutrophils % (Manual) Lymphocytes % (Manual) Monocytes % (Manual) Basophils % (Manual) Platelet Estimate Anisocytosis (manual) Sodium 135 Potassium 5.1 Chloride 92 L Carbon Dioxide 29 Anion Gap 19 BUN 34 H Creatinine 6.4 H Est GFR ( Amer) 10 Est GFR (Non-Af Amer) 9 POC Glucose (mg/dL) Random Glucose 192 H Hemoglobin A1c 4.6 Calcium 8.7 Total Bilirubin 0.7 AST 48 ALT 18 L D Alkaline Phosphatase 54 Total Creatine Kinase CK-MB (Mass) Troponin I Total Protein 7.3 Albumin 3.7 Globulin 3.6 Albumin/Globulin Ratio 1.0 Serum Ketones 09/04/17 09/04/17 09/04/17 06:35 07:24 10:36 WBC RBC Hgb Hct MCV MCH MCHC RDW Plt Count MPV Neutrophils % (Manual) Lymphocytes % (Manual) Monocytes % (Manual) Basophils % (Manual) Platelet Estimate Anisocytosis (manual) Sodium Potassium Chloride Carbon Dioxide Anion Gap BUN Creatinine Est GFR ( Amer) Est GFR (Non-Af Amer) POC Glucose (mg/dL) 194 H 193 H 149 H Random Glucose Hemoglobin A1c Calcium Total Bilirubin AST ALT Alkaline Phosphatase Total Creatine Kinase CK-MB (Mass) Troponin I Total Protein Albumin Globulin Albumin/Globulin Ratio Serum Ketones Attending/Attestation - Attestation I have personally seen and examined this patient.: Yes I have fully participated in the care of the patient.: Yes I have reviewed all pertinent clinical information: Yes Notes (Text): Medical attending: Patient was seen and examined by me. Agree with the above note by the resident The patient was in the ER and repeatedly was having very low blood sugars despite repeated amps of D50. I suspect it is possible the patient was not getting his dialysis - and at the same time he was still taking his DM medication - the sulfonyurea as well as his nateglitide. If he was not able to get his HD then probably the sulfonyurea and nateglitide built up and thus he was repeatedly hypoglycemic. He fell and has a small R side subdural hemmorage seen on CT scan. The patient will need further repeat CT scans done He will need to get HD while he is here as well thank you Bassam Treviño
[2017-09-03] MEDS ORDERED: MethylPREDNISolone 40 mg Vial IVP STA (19:51)
[2017-09-03] MEDS ORDERED: Glucagon Recombinant 1 mg Inj SC STA ×2 (19:51→20:51)
[2017-09-03] MEDS ORDERED: Glucagon Recombinant 1 mg Inj IM PRN (19:52)
[2017-09-03] MEDS ORDERED: Dextrose 50% SYRINGE Inj (50 ml) IV PRN (19:52)
[2017-09-04] MEDS ORDERED: Dextrose 50% SYRINGE Inj (50 ml) IV STA (00:13)
[2017-09-04] MEDS ORDERED: Dextrose 50% SYRINGE Inj (50 ml) IV PRN ×2 (00:24→13:16)
--- NOTE | 2017-09-04 02:25 | CON ---
DATE: HISTORY OF PRESENT ILLNESS: This is a 74-year-old Korean speaking male who was last seen last night. He was found by EMS with altered mental status. Glucose was 35 when they found him, currently it is in the 80s after given him glucose. He had a CT of the head that shows a relatively small right acute subdural hematoma. It is measured at 9 mm but I believe that this is measured at just above the orbit, not where it is mostly located, and it is officially read as 1 to 2 mm of midline shift. He is a renal failure dialysis patient with diabetes and cannot assess any further medical history at this point. Currently, he is awake and alert. He is following commands. He is talking appropriately. Pupils are equal. His EOMs are full. His face is symmetric. His tongue is midline. He has good strength with no drift. No sensory deficits. Reflexes are all 1/4. At this point, this is a relatively small subdural, and I believe, he can be observed. I suggested to the ER that he be admitted to the ICU that we will repeat CAT scan first thing in the morning. We will reevaluate him tomorrow, if his subdural is any worse, we will reconsider operative intervention. If his mental status changes, we will get a repeat CT scan as soon as necessary. Oleksandr Bernal MD
[2017-09-04 06:23] LABS: MEAN CELL VOLUME 97.8 fL (80.0-94.0); MEAN CORPUSCULAR HGB CONC 33.7 g/dL (33.0-37.0); MEAN PLATELET VOLUME 9.8 fL (7.2-11.7); RBC 2.67 Mil/uL (4.40-5.90); WHITE BLOOD COUNT 9.1 K/uL (4.8-10.8)
[2017-09-04 06:25] LABS: HEMOGLOBIN 8.8 g/dL (12.0-18.0)
[2017-09-04 06:37] LABS: ALBUMIN 3.7 g/dL (3.5-5.0); CALCIUM 8.7 mg/dl (8.6-10.4)
--- NOTE | 2017-09-04 09:15 | CP.PCM.PN ---
Subjective - Date & Time of Evaluation Date of Evaluation: 09/04/17 Time of Evaluation: 09:13 - Subjective Subjective: pt awake alert moving all following commands reviewed CT a fair amount of motion artifact SDH looks like the patern reorganized but it is not any bigger, perhaps somewhat smaller no surgical intervention indicated can follow along as needed should follow with me post d/c from hospital Objective - Vital Signs/Intake and Output Vital Signs (last 24 hours): Temp Pulse Resp BP Pulse Ox 98 F 105 H 12 148/81 86 L 09/04/17 04:00 09/04/17 07:00 09/04/17 07:00 09/04/17 04:02 09/04/17 00:59 Intake and Output: 09/04/17 09/04/17 06:59 18:59 Intake Total 786.9 70 Output Total 3000 Balance -2213.1 70 - Medications Medications: Current Medications Dextrose (Glutose 15) 0 gm PO ONCE PRN; Protocol PRN Reason: Hypoglycemia Protocol Dextrose (Dextrose 50% Inj) 0 ml IV STAT PRN; Protocol PRN Reason: Hypoglycemia Protocol Glucagon (Glucagen Diagnostic Kit) 0 mg IM STAT PRN; Protocol PRN Reason: Hypoglycemia Protocol Nitroglycerin/Dextrose (Nitroglycerin 50 Mg/250 Ml D5w) 50 mg in 250 mls @ 1.5 mls/hr IV .Q24H SINDI; 5 MCG/MIN PRN Reason: Protocol Last Admin: 09/03/17 18:32 Dose: 5 mcg/min, 1.5 mls/hr Dextrose (Dextrose 10% In Water) 500 mls @ 70 mls/hr IV .Q7H9M SINDI Last Admin: 09/04/17 00:26 Dose: 70 mls/hr Pantoprazole Sodium (Protonix Inj) 40 mg IVP DAILY SINDI - Labs Labs: 09/04/17 06:12 09/04/17 06:14
--- NOTE | 2017-09-04 09:52 | RAD ---
Chest x-ray single frontal view History: Congestive heart failure. Comparison: 09/03/2017 Findings: Biapical pleural thickening with upper lobe granulomatous changes. Mild venous congestion. Nodular density at the left lung base may represent confluence of shadows with ribs and vessels. Enlarged ectatic aorta with cardiomegaly. Degenerative changes in the spine with paravertebral osteophytes. Impression: Biapical pleural thickening with upper lobe granulomatous changes. Mild venous congestion. Nodular density at the left lung base may represent confluence of shadows with ribs and vessels. Enlarged ectatic aorta with cardiomegaly.
--- NOTE | 2017-09-04 10:42 | CT ---
PROCEDURE: CT HEAD WITHOUT CONTRAST. HISTORY: subdural bleed COMPARISON: Unenhanced head CT 09/03/2017 1:46 p.m.. TECHNIQUE: Axial computed tomography images were obtained through the head/brain without intravenous contrast. Radiation dose: Total exam DLP = 2290.99 mGy-cm. This CT exam was performed using one or more of the following dose reduction techniques: Automated exposure control, adjustment of the mA and/or kV according to patient size, and/or use of iterative reconstruction technique. FINDINGS: Motion artifacts degrade the quality this examination significantly despite multiple series be repeated to attempt to overcome the problem. Examination is significantly limited. HEMORRHAGE: Right frontal subdural hematoma remains 9 greatest thickness at the right frontal subdural space extending inferior to the right frontal lobe extending posteriorly into the anterior at right temporal subdural space as well diminishing in thickness. A marginal leftward midline shift is stable up to 2 mm. Definite new intracranial hemorrhage identified. There is also a right tentorial subdural hematoma which appears quite minimal measuring 2 mm thickness significantly obscured in the regional CT by artifact from motion as well as the skullbase, unchanged in the interval. It is likely a contiguous extension of the mid very thin right frontotemporal subdural. BRAIN: Medial left colonic chronic lacune reiterated as well as limited diffuse cerebral atrophy and moderate chronic microangiopathy. No definitive new interval findings throughout the supra and infratentorial brain parenchyma as well as the brainstem. VENTRICLES: Unremarkable. No hydrocephalus. CALVARIUM: There is no definitive fracture however motion artifacts degrade of the quality exam significantly enough that is difficult to completely exclude one. PARANASAL SINUSES: Unremarkable as visualized but obscured by motion artifact. No significant inflammatory changes. MASTOID AIR CELLS: Unremarkable as visualized. No inflammatory changes. OTHER FINDINGS: None. IMPRESSION: Stable unenhanced head CT including a small right frontotemporal subdural hematoma likely with extension into the right tentorium with minimal leftward shift of up to 2 mm once again. No significant interval change. Motion artifacts degrade the quality this examination and skullbase as well as motionartifacts obscured the right tentorium more so on the prior CT exam 09/03/[address] Continued clinical and CT monitoring is advised. Age-related neuro degenerative changes reiterated.
--- NOTE | 2017-09-04 11:25 | CP.PCM.CON ---
History of Present Illness - History of Present Illness History of Present Illness: Initial Nephrology Consultation: Assessment: Stable HTN urgency with pulmonary congestion fall, hypoglycemia with very tightly controlled DM SDH Diabetic chronic Kidney Disease (E11.22) Hypertensive Chronic Kidney Disease (I12.0) End stage renal disease (N18.6) dependence on hemodialysis (Z99.2) (MWF) via AVF Anemia (D64.9), Hyperphosphatemia (E83.39), Secondary Hyperparathyroidism (E21.1 ), HTN (I12.0) Plan: No acute need for dialysis today. Will plan for dialysis tomorrow. Continue with Nephrovite 1 tab/day. pt tolerated dialysis yesterday well with UF 3 Kgs, now pulmonary congestion and BP better PRBC as needed for anemia. On HOMER as epogen with HD, last Hb 8.8 Continue with phos binders home dose, check phos level BP control with meds as ordered. Patient not on RAAS mike consider to add if BP stays elevated Glycemic control, avoid sulphonylureas. last a1c 4.6%. consider to hold oral hypoglycemics at d/c. Dialysis consistent diet Further work up/management as per primary team Dose meds/antibiotics (if needed) for ESRD status. Avoid fleets enema/magnesium based laxatives. Thanks for allowing me to participate in care of your patient. Will follow patient with you. Please call if any Qs. d/w team Dr Patrick Edmonds Office: [phone] Chief Complaint;I am hungry reason for consult: ESRD and HTN HPI: Pt is a 72 M with hx of ESRD on hemodialysis (MWF) via AVF @ [facility] with Dr Javed, last dialysis yesterday in hospital, chronic anemia, hyperphosphatemia, secondary hyperparathyroidism, Diabetes Mellitus, hypertension presented with complaints of altered mental status and hypoglycemia , fall with small SDH. also with HTN urgency. pt was started on D10 drip and admitted to ICU. pt feels better now, wants to eat food, feels hungry denies smoking/etoh ROS: Cardiovascular: No chest pain. Pulmonary: No shortness of breath Gastrointestinal: denies abdominal pain No nausea. No vomiting. Genitourinary: No pain while urinating. Denies blood in urine. All other negative except as mentioned in HPI Physical Examination: General Appearance: Comfortable, in no acute respiratory distress, co-operative . Vitals reviewed and noted as below Head; Atraumatic, normocephalic ENT: no ulcers no thrush. Tongue is midline. Oropharynx: no rash or ulcers. EYES: Pupils are equal, round and reactive to light accommodation. Eye muscles and extraocular movement intact. Sclera is anicteric. Neck; supple no lymphadenopathy, no thyromegaly or bruit Lungs: Normal respiratory rate/effort. Breath sounds bilateral equal and clear Heart: Normal rate. s1s2 normal. No rub or gallop. Extremities: no edema. No varicose veins Neurological: Patient is alert, awake and oriented to person, place and time. No focal deficit. Strength bilateral appropriate and equal Skin: Warm and dry. Normal turgor. No rash. Palpitation: Normal elasticity for age Abdomen: Abdomen is soft. Bowel sounds +. There is no abdominal tenderness, no guarding/rigidity or organomegaly Psych: normal insight and normal affect/mood MSK: no joint tenderness or swelling. Digits and nails normal, no deformity : kidney or bladder not palpable Access: AVF with thrill and bruit Labs/imaging reviewed. Past medical history, past surgical history, family history, social history, allergy reviewed and noted as below Family Hx: no hx of CKD. Non contributory Past Patient History - Past Medical History & Family History Past Medical History?: Yes - Past Social History Smoking Status: Never Smoked - CARDIAC Hx Cardiac Disorders: Yes Hx Angina: Yes (CAD) Hx Cardia Arrhythmia: Yes Hx Hypertension: Yes - PULMONARY Hx Respiratory Disorders: No - NEUROLOGICAL Hx Neurological Disorder: No - HEENT Hx HEENT Problems: Yes Other/Comment: RINGING RIGHT EAR - RENAL Hx Chronic Kidney Disease: Yes Type of Dialysis Access: Left AVS Date of Last Dialysis Treatment: 08/31/17 Hx Renal Failure: Yes - ENDOCRINE/METABOLIC Hx Endocrine Disorders: Yes Hx Diabetes Mellitus Type 2: Yes - HEMATOLOGICAL/ONCOLOGICAL Hx Blood Disorders: Yes Hx Cancer: Yes (PROSTATE) - INTEGUMENTARY Hx Dermatological Problems: No - MUSCULOSKELETAL/RHEUMATOLOGICAL Hx Falls: Yes - GASTROINTESTINAL Hx Gastrointestinal Disorders: Yes Hx Gall Bladder Disease: Yes - GENITOURINARY/GYNECOLOGICAL Hx Genitourinary Disorders: Yes Hx Prostate Cancer: Yes Other/Comment: POST URINARY FREQUENCT PROSTATE SX SURGERY ON URETHRA NO LONGER FREQUENCY - PSYCHIATRIC Hx Psychophysiologic Disorder: No Hx Substance Use: No - SURGICAL HISTORY Hx Surgeries: Yes Hx Cholecystectomy: Yes Hx Tonsillectomy: Yes Other/Comment: Prostate Sx - ANESTHESIA Hx Anesthesia: Yes Hx Anesthesia Reactions: No Hx Malignant Hyperthermia: No Has any member of the family had a problem w/ anesthesia?: No Meds Allergies/Adverse Reactions: Allergies Allergy/AdvReac Type Severity Reaction Status Date / Time No Known Allergies Allergy Verified 09/03/17 11:40 - Medications Medications: Current Medications Carvedilol (Coreg) 6.25 mg PO BID SINDI Dextrose (Glutose 15) 0 gm PO ONCE PRN; Protocol PRN Reason: Hypoglycemia Protocol Dextrose (Dextrose 50% Inj) 0 ml IV STAT PRN; Protocol PRN Reason: Hypoglycemia Protocol Diltiazem HCl (Cardizem Cd) 180 mg PO DAILY [facility] Epoetin Robert (Procrit) 8,000 unit IV MWF [facility] Glucagon (Glucagen Diagnostic Kit) 0 mg IM STAT PRN; Protocol PRN Reason: Hypoglycemia Protocol Nitroglycerin/Dextrose (Nitroglycerin 50 Mg/250 Ml D5w) 50 mg in 250 mls @ 1.5 mls/hr IV .Q24H SINDI; 5 MCG/MIN PRN Reason: Protocol Last Admin: 09/03/17 18:32 Dose: 5 mcg/min, 1.5 mls/hr Dextrose (Dextrose 10% In Water) 500 mls @ 70 mls/hr IV .Q7H9M [facility] Last Admin: 09/04/17 00:26 Dose: 70 mls/hr Pantoprazole Sodium (Protonix Inj) 40 mg IVP DAILY [facility] Last Admin: 09/04/17 09:33 Dose: 40 mg Vitamin B Complex/Vit C/Folic Acid (Nephro-Yecenia) 1 tab PO 0800 [facility] Results - Vital Signs Recent Vital Signs: Last Vital Signs Temp 98 F 09/04/17 04:00 Pulse 105 H 09/04/17 07:00 Resp 12 09/04/17 07:00 BP 148/81 09/04/17 04:02 Pulse Ox 86 L 09/04/17 00:59 - Labs Result Diagrams: 09/04/17 06:12 09/04/17 06:14 Labs: Laboratory Results - last 24 hr 09/03/17 09/03/17 09/03/17 12:07 13:21 14:40 WBC 15.9 H RBC 3.42 L Hgb 10.9 L Hct 33.5 L MCV 98.0 H D MCH 31.9 H MCHC 32.6 L RDW 15.9 H Plt Count 264 D MPV 11.0 Neut % (Auto) 90.1 H Lymph % (Auto) 4.3 L Major % (Auto) 4.9 Eos % (Auto) 0.3 Baso % (Auto) 0.4 Neut # (Auto) 14.3 H Lymph # (Auto) 0.7 L Major # (Auto) 0.8 Eos # (Auto) 0.0 Baso # (Auto) 0.1 Neutrophils % (Manual) 90 H Lymphocytes % (Manual) 4 L Monocytes % (Manual) 5 Basophils % (Manual) 1 Platelet Estimate Normal Anisocytosis (manual) Slight Sodium 138 Potassium 5.5 H Chloride 100 Carbon Dioxide 21 L Anion Gap 22 H BUN 63 H Creatinine 10.0 H* D Est GFR ( Amer) 6 Est GFR (Non-Af Amer) 5 POC Glucose (mg/dL) 80 Random Glucose 34 L* D Hemoglobin A1c Calcium 8.9 Total Bilirubin 0.5 AST 50 ALT 11 L D Alkaline Phosphatase 51 Total Creatine Kinase 737 H CK-MB (Mass) 3.84 H Troponin I 0.1190 Total Protein 7.5 Albumin 3.8 Globulin 3.7 Albumin/Globulin Ratio 1.0 Serum Ketones Negative 09/03/17 09/03/17 09/03/17 15:45 16:30 17:09 WBC RBC Hgb Hct MCV MCH MCHC RDW Plt Count MPV Neut % (Auto) Lymph % (Auto) Major % (Auto) Eos % (Auto) Baso % (Auto) Neut # (Auto) Lymph # (Auto) Major # (Auto) Eos # (Auto) Baso # (Auto) Neutrophils % (Manual) Lymphocytes % (Manual) Monocytes % (Manual) Basophils % (Manual) Platelet Estimate Anisocytosis (manual) Sodium Potassium Chloride Carbon Dioxide Anion Gap BUN Creatinine Est GFR ( Amer) Est GFR (Non-Af Amer) POC Glucose (mg/dL) 108 < 20 L* 52 L Random Glucose Hemoglobin A1c Calcium Total Bilirubin AST ALT Alkaline Phosphatase Total Creatine Kinase CK-MB (Mass) Troponin I Total Protein Albumin Globulin Albumin/Globulin Ratio Serum Ketones 09/03/17 09/03/1718 18:46 18:49 19:40 WBC RBC Hgb Hct MCV MCH MCHC RDW Plt Count MPV Neut % (Auto) Lymph % (Auto) Major % (Auto) Eos % (Auto) Baso % (Auto) Neut # (Auto) Lymph # (Auto) Major # (Auto) Eos # (Auto) Baso # (Auto) Neutrophils % (Manual) Lymphocytes % (Manual) Monocytes % (Manual) Basophils % (Manual) Platelet Estimate Anisocytosis (manual) Sodium Potassium Chloride Carbon Dioxide Anion Gap BUN Creatinine Est GFR ( Amer) Est GFR (Non-Af Amer) POC Glucose (mg/dL) < 20 L* < 20 L* 40 L Random Glucose Hemoglobin A1c Calcium Total Bilirubin AST ALT Alkaline Phosphatase Total Creatine Kinase CK-MB (Mass) Troponin I Total Protein Albumin Globulin Albumin/Globulin Ratio Serum Ketones 09/03/17 09/03/17 09/03/17 20:23 20:47 22:01 WBC RBC Hgb Hct MCV MCH MCHC RDW Plt Count MPV Neut % (Auto) Lymph % (Auto) Major % (Auto) Eos % (Auto) Baso % (Auto) Neut # (Auto) Lymph # (Auto) Major # (Auto) Eos # (Auto) Baso # (Auto) Neutrophils % (Manual) Lymphocytes % (Manual) Monocytes % (Manual) Basophils % (Manual) Platelet Estimate Anisocytosis (manual) Sodium Potassium Chloride Carbon Dioxide Anion Gap BUN Creatinine Est GFR ( Amer) Est GFR (Non-Af Amer) POC Glucose (mg/dL) 71 44 L 75 Random Glucose Hemoglobin A1c Calcium Total Bilirubin AST ALT Alkaline Phosphatase Total Creatine Kinase CK-MB (Mass) Troponin I Total Protein Albumin Globulin Albumin/Globulin Ratio Serum Ketones 09/03/17 09/04/17 09/04/17 22:58 00:09 00:13 WBC RBC Hgb Hct MCV MCH MCHC RDW Plt Count MPV Neut % (Auto) Lymph % (Auto) Major % (Auto) Eos % (Auto) Baso % (Auto) Neut # (Auto) Lymph # (Auto) Major # (Auto) Eos # (Auto) Baso # (Auto) Neutrophils % (Manual) Lymphocytes % (Manual) Monocytes % (Manual) Basophils % (Manual) Platelet Estimate Anisocytosis (manual) Sodium Potassium Chloride Carbon Dioxide Anion Gap BUN Creatinine Est GFR ( Amer) Est GFR (Non-Af Amer) POC Glucose (mg/dL) 73 60 L 63 L Random Glucose Hemoglobin A1c Calcium Total Bilirubin AST ALT Alkaline Phosphatase Total Creatine Kinase CK-MB (Mass) Troponin I Total Protein Albumin Globulin Albumin/Globulin Ratio Serum Ketones 09/04/17 09/04/17 09/04/17 00:55 02:00 04:01 WBC RBC Hgb Hct MCV MCH MCHC RDW Plt Count MPV Neut % (Auto) Lymph % (Auto) Major % (Auto) Eos % (Auto) Baso % (Auto) Neut # (Auto) Lymph # (Auto) Major # (Auto) Eos # (Auto) Baso # (Auto) Neutrophils % (Manual) Lymphocytes % (Manual) Monocytes % (Manual) Basophils % (Manual) Platelet Estimate Anisocytosis (manual) Sodium Potassium Chloride Carbon Dioxide Anion Gap BUN Creatinine Est GFR ( Amer) Est GFR (Non-Af Amer) POC Glucose (mg/dL) 189 H 199 H 201 H Random Glucose Hemoglobin A1c Calcium Total Bilirubin AST ALT Alkaline Phosphatase Total Creatine Kinase CK-MB (Mass) Troponin I Total Protein Albumin Globulin Albumin/Globulin Ratio Serum Ketones 09/04/17 09/04/17 09/04/17 06:12 06:12 06:14 WBC 9.1 RBC 2.67 L Hgb 8.8 L D Hct 26.1 L MCV 97.8 H MCH 33.0 H MCHC 33.7 RDW 16.0 H Plt Count 159 D MPV 9.8 Neut % (Auto) Lymph % (Auto) Major % (Auto) Eos % (Auto) Baso % (Auto) Neut # (Auto) Lymph # (Auto) Major # (Auto) Eos # (Auto) Baso # (Auto) Neutrophils % (Manual) Lymphocytes % (Manual) Monocytes % (Manual) Basophils % (Manual) Platelet Estimate Anisocytosis (manual) Sodium 135 Potassium 5.1 Chloride 92 L Carbon Dioxide 29 Anion Gap 19 BUN 34 H Creatinine 6.4 H Est GFR ( Amer) 10 Est GFR (Non-Af Amer) 9 POC Glucose (mg/dL) Random Glucose 192 H Hemoglobin A1c 4.6 Calcium 8.7 Total Bilirubin 0.7 AST 48 ALT 18 L D Alkaline Phosphatase 54 Total Creatine Kinase CK-MB (Mass) Troponin I Total Protein 7.3 Albumin 3.7 Globulin 3.6 Albumin/Globulin Ratio 1.0 Serum Ketones 09/04/17 09/04/17 09/04/17 06:35 07:24 10:36 WBC RBC Hgb Hct MCV MCH MCHC RDW Plt Count MPV Neut % (Auto) Lymph % (Auto) Major % (Auto) Eos % (Auto) Baso % (Auto) Neut # (Auto) Lymph # (Auto) Major # (Auto) Eos # (Auto) Baso # (Auto) Neutrophils % (Manual) Lymphocytes % (Manual) Monocytes % (Manual) Basophils % (Manual) Platelet Estimate Anisocytosis (manual) Sodium Potassium Chloride Carbon Dioxide Anion Gap BUN Creatinine Est GFR ( Amer) Est GFR (Non-Af Amer) POC Glucose (mg/dL) 194 H 193 H 149 H Random Glucose Hemoglobin A1c Calcium Total Bilirubin AST ALT Alkaline Phosphatase Total Creatine Kinase CK-MB (Mass) Troponin I Total Protein Albumin Globulin Albumin/Globulin Ratio Serum Ketones
[2017-09-04] MEDS: diltiaZEM 180 mg/24 Hours CD Cap PO SCH (11:46)
--- NOTE | 2017-09-04 12:26 | CARD ---
APPROVED REPORT EKG Measurement Heart [id number] <Conclusion> Sinus tachycardia Left bundle branch block Abnormal ECG
--- NOTE | 2017-09-04 13:24 | CP.CCUPN ---
<Dustin Heck - Last Filed: 09/04/17 13:20> CCU Subjective - Physician Review Subjective (Free Text): 09/04/17 13:20 Patient seen and examined. Patient reports feeling much better. His hypoglycemic symptoms have resolved. CCU Objective - Vital Signs / Intake & Output Intake and Output (Last 8hrs): Intake & Output 09/03/17 09/04/17 09/04/17 22:59 06:59 14:59 Intake Total 186.9 600 620 Output Total 3000 0 Balance 186.9 -2400 620 Weight 158 lb 11.725 oz 152 lb 12.8 oz Intake: Intake, IV Amount 136.9 550 260 Distal Port Femoral 1.9 Proximal Port Femoral 135 550 260 Oral 50 50 360 Output: Emesis 0 Other 3000 Other: # Bowel Movements 0 - Physical Exam Head: Positive for: Atraumatic, Normocephalic Pupils: Positive for: PERRL Extroacular Muscles: Positive for: EOMI Conjunctiva: Positive for: Normal Mouth: Positive for: Moist Mucous Membranes Respiratory/Chest: Positive for: Clear to Auscultation. Negative for: Wheezes, Rales, Rhonchi Cardiovascular: Positive for: Regular Rate and Rhythm, Normal S1, S2 Abdomen: Positive for: Normal Bowel Sounds. Negative for: Tenderness Upper Extremity: Positive for: Normal Inspection Lower Extremity: Positive for: Other (right femoral TLC) Neurological: Positive for: GCS=15 Skin: Positive for: Warm, Dry Psychiatric: Positive for: Alert, Oriented x 3 - Medications Active Medications: Active Medications Generic Name Dose Route Start Last Admin Trade Name Freq PRN Reason Stop Dose Admin Carvedilol 6.25 mg 09/04/17 18:00 Coreg PO BID SINDI Dextrose 0 gm 09/03/17 19:52 Glutose 15 PO ONCE PRN Hypoglycemia Protocol Protocol Dextrose 0 ml 09/04/17 00:24 Dextrose 50% Inj IV STAT PRN Hypoglycemia Protocol Protocol Dextrose 0 ml 09/04/17 13:16 Dextrose 50% Inj IV STAT PRN Hypoglycemia Protocol Protocol Diltiazem HCl 180 mg 09/04/17 10:15 09/04/17 11:46 Cardizem Cd PO 180 mg DAILY SINDI Administration Epoetin Robert 8,000 unit 09/05/17 09:00 Procrit IV MWF SINDI Glucagon 0 mg 09/03/17 19:52 Glucagen Diagnostic Kit IM STAT PRN Hypoglycemia Protocol Protocol Nitroglycerin/Dextrose 50 mg in 250 mls @ 1.5 mls/hr 09/03/17 17:45 09/03/17 18:32 Nitroglycerin 50 Mg/250 Ml D5w IV 5 mcg/min .Q24H SINDI 1.5 mls/hr Protocol Administration 5 MCG/MIN Dextrose 1,000 mls @ 0 mls/hr 09/04/17 13:16 Dextrose 5% In Water 1000 Ml IV .Q0M PRN Hypoglycemia Protocol Protocol Per Protocol Pantoprazole Sodium 40 mg 09/04/17 10:00 09/04/17 09:33 Protonix Inj IVP 40 mg DAILY SINDI Administration Vitamin B Complex/Vit C/Folic Acid 1 tab 09/05/17 08:00 Nephro-Yecenia PO 0800 SINDI - Patient Studies Lab Studies: Lab Studies 09/04/17 09/04/17 09/04/17 Range/Units 13:06 10:36 07:24 WBC (4.8-10.8) K/uL RBC (4.40-5.90) Mil/uL Hgb (12.0-18.0) g/dL Hct (35.0-51.0) % MCV (80.0-94.0) fL MCH (27.0-31.0) pg MCHC (33.0-37.0) g/dL RDW (11.5-14.5) % Plt Count (130-400) K/uL MPV (7.2-11.7) fL Sodium (132-148) mmol/L Potassium (3.6-5.2) mmol/L Chloride (98-107) mmol/L Carbon Dioxide (22-30) mmol/L Anion Gap (10-20) BUN (9-20) mg/dL Creatinine (0.8-1.5) mg/dL Est GFR ( Amer) Est GFR (Non-Af Amer) POC Glucose (mg/dL) 139 H 149 H 193 H (65-110) mg/dL Random Glucose (75-110) mg/dL Hemoglobin A1c (4.2-6.5) % Calcium (8.6-10.4) mg/dl Total Bilirubin (0.2-1.3) mg/dL AST (17-59) U/L ALT (21-72) U/L Alkaline Phosphatase (38-126) U/L Total Creatine Kinase (55-170) U/L CK-MB (Mass) (0.0-3.38) ng/mL Troponin I (0.00-0.120) ng/mL Total Protein (6.3-8.3) g/dL Albumin (3.5-5.0) g/dL Globulin (2.2-3.9) gm/dL Albumin/Globulin Ratio (1.0-2.1) Serum Ketones (NEGATIVE) 09/04/17 09/04/17 09/04/17 Range/Units 06:35 06:14 06:12 WBC (4.8-10.8) K/uL RBC (4.40-5.90) Mil/uL Hgb (12.0-18.0) g/dL Hct (35.0-51.0) % MCV (80.0-94.0) fL MCH (27.0-31.0) pg MCHC (33.0-37.0) g/dL RDW (11.5-14.5) % Plt Count (130-400) K/uL MPV (7.2-11.7) fL Sodium 135 (132-148) mmol/L Potassium 5.1 (3.6-5.2) mmol/L Chloride 92 L (98-107) mmol/L Carbon Dioxide 29 (22-30) mmol/L Anion Gap 19 (10-20) BUN 34 H (9-20) mg/dL Creatinine 6.4 H (0.8-1.5) mg/dL Est GFR ( Amer) 10 Est GFR (Non-Af Amer) 9 POC Glucose (mg/dL) 194 H (65-110) mg/dL Random Glucose 192 H (75-110) mg/dL Hemoglobin A1c 4.6 (4.2-6.5) % Calcium 8.7 (8.6-10.4) mg/dl Total Bilirubin 0.7 (0.2-1.3) mg/dL AST 48 (17-59) U/L ALT 18 L D (21-72) U/L Alkaline Phosphatase 54 (38-126) U/L Total Creatine Kinase (55-170) U/L CK-MB (Mass) (0.0-3.38) ng/mL Troponin I (0.00-0.120) ng/mL Total Protein 7.3 (6.3-8.3) g/dL Albumin 3.7 (3.5-5.0) g/dL Globulin 3.6 (2.2-3.9) gm/dL Albumin/Globulin Ratio 1.0 (1.0-2.1) Serum Ketones (NEGATIVE) 09/04/17 09/04/17 09/04/17 Range/Units 06:12 04:01 02:00 WBC 9.1 (4.8-10.8) K/uL RBC 2.67 L (4.40-5.90) Mil/uL Hgb 8.8 L D (12.0-18.0) g/dL Hct 26.1 L (35.0-51.0) % MCV 97.8 H (80.0-94.0) fL MCH 33.0 H (27.0-31.0) pg MCHC 33.7 (33.0-37.0) g/dL RDW 16.0 H (11.5-14.5) % Plt Count 159 D (130-400) K/uL MPV 9.8 (7.2-11.7) fL Sodium (132-148) mmol/L Potassium (3.6-5.2) mmol/L Chloride (98-107) mmol/L Carbon Dioxide (22-30) mmol/L Anion Gap (10-20) BUN (9-20) mg/dL Creatinine (0.8-1.5) mg/dL Est GFR ( Amer) Est GFR (Non-Af Amer) POC Glucose (mg/dL) 201 H 199 H (65-110) mg/dL Random Glucose (75-110) mg/dL Hemoglobin A1c (4.2-6.5) % Calcium (8.6-10.4) mg/dl Total Bilirubin (0.2-1.3) mg/dL AST (17-59) U/L ALT (21-72) U/L Alkaline Phosphatase (38-126) U/L Total Creatine Kinase (55-170) U/L CK-MB (Mass) (0.0-3.38) ng/mL Troponin I (0.00-0.120) ng/mL Total Protein (6.3-8.3) g/dL Albumin (3.5-5.0) g/dL Globulin (2.2-3.9) gm/dL Albumin/Globulin Ratio (1.0-2.1) Serum Ketones (NEGATIVE) 09/04/17 09/04/17 09/04/17 Range/Units 00:55 00:13 00:09 WBC (4.8-10.8) K/uL RBC (4.40-5.90) Mil/uL Hgb (12.0-18.0) g/dL Hct (35.0-51.0) % MCV (80.0-94.0) fL MCH (27.0-31.0) pg MCHC (33.0-37.0) g/dL RDW (11.5-14.5) % Plt Count (130-400) K/uL MPV (7.2-11.7) fL Sodium (132-148) mmol/L Potassium (3.6-5.2) mmol/L Chloride (98-107) mmol/L Carbon Dioxide (22-30) mmol/L Anion Gap (10-20) BUN (9-20) mg/dL Creatinine (0.8-1.5) mg/dL Est GFR ( Amer) Est GFR (Non-Af Amer) POC Glucose (mg/dL) 189 H 63 L 60 L (65-110) mg/dL Random Glucose (75-110) mg/dL Hemoglobin A1c (4.2-6.5) % Calcium (8.6-10.4) mg/dl Total Bilirubin (0.2-1.3) mg/dL AST (17-59) U/L ALT (21-72) U/L Alkaline Phosphatase (38-126) U/L Total Creatine Kinase (55-170) U/L CK-MB (Mass) (0.0-3.38) ng/mL Troponin I (0.00-0.120) ng/mL Total Protein (6.3-8.3) g/dL Albumin (3.5-5.0) g/dL Globulin (2.2-3.9) gm/dL Albumin/Globulin Ratio (1.0-2.1) Serum Ketones (NEGATIVE) 04/09/03/17 09/03/17 Range/Units 22:58 22:01 20:47 WBC (4.8-10.8) K/uL RBC (4.40-5.90) Mil/uL Hgb (12.0-18.0) g/dL Hct (35.0-51.0) % MCV (80.0-94.0) fL MCH (27.0-31.0) pg MCHC (33.0-37.0) g/dL RDW (11.5-14.5) % Plt Count (130-400) K/uL MPV (7.2-11.7) fL Sodium (132-148) mmol/L Potassium (3.6-5.2) mmol/L Chloride (98-107) mmol/L Carbon Dioxide (22-30) mmol/L Anion Gap (10-20) BUN (9-20) mg/dL Creatinine (0.8-1.5) mg/dL Est GFR ( Amer) Est GFR (Non-Af Amer) POC Glucose (mg/dL) 73 75 44 L (65-110) mg/dL Random Glucose (75-110) mg/dL Hemoglobin A1c (4.2-6.5) % Calcium (8.6-10.4) mg/dl Total Bilirubin (0.2-1.3) mg/dL AST (17-59) U/L ALT (21-72) U/L Alkaline Phosphatase (38-126) U/L Total Creatine Kinase (55-170) U/L CK-MB (Mass) (0.0-3.38) ng/mL Troponin I (0.00-0.120) ng/mL Total Protein (6.3-8.3) g/dL Albumin (3.5-5.0) g/dL Globulin (2.2-3.9) gm/dL Albumin/Globulin Ratio (1.0-2.1) Serum Ketones (NEGATIVE) 09/03/17 09/03/17 09/03/17 Range/Units 20:23 19:40 18:49 WBC (4.8-10.8) K/uL RBC (4.40-5.90) Mil/uL Hgb (12.0-18.0) g/dL Hct (35.0-51.0) % MCV (80.0-94.0) fL MCH (27.0-31.0) pg MCHC (33.0-37.0) g/dL RDW (11.5-14.5) % Plt Count (130-400) K/uL MPV (7.2-11.7) fL Sodium (132-148) mmol/L Potassium (3.6-5.2) mmol/L Chloride (98-107) mmol/L Carbon Dioxide (22-30) mmol/L Anion Gap (10-20) BUN (9-20) mg/dL Creatinine (0.8-1.5) mg/dL Est GFR ( Amer) Est GFR (Non-Af Amer) POC Glucose (mg/dL) 71 40 L < 20 L* (65-110) mg/dL Random Glucose (75-110) mg/dL Hemoglobin A1c (4.2-6.5) % Calcium (8.6-10.4) mg/dl Total Bilirubin (0.2-1.3) mg/dL AST (17-59) U/L ALT (21-72) U/L Alkaline Phosphatase (38-126) U/L Total Creatine Kinase (55-170) U/L CK-MB (Mass) (0.0-3.38) ng/mL Troponin I (0.00-0.120) ng/mL Total Protein (6.3-8.3) g/dL Albumin (3.5-5.0) g/dL Globulin (2.2-3.9) gm/dL Albumin/Globulin Ratio (1.0-2.1) Serum Ketones (NEGATIVE) 09/03/17 09/03/17 09/03/17 Range/Units 18:46 17:09 16:30 WBC (4.8-10.8) K/uL RBC (4.40-5.90) Mil/uL Hgb (12.0-18.0) g/dL Hct (35.0-51.0) % MCV (80.0-94.0) fL MCH (27.0-31.0) pg MCHC (33.0-37.0) g/dL RDW (11.5-14.5) % Plt Count (130-400) K/uL MPV (7.2-11.7) fL Sodium (132-148) mmol/L Potassium (3.6-5.2) mmol/L Chloride (98-107) mmol/L Carbon Dioxide (22-30) mmol/L Anion Gap (10-20) BUN (9-20) mg/dL Creatinine (0.8-1.5) mg/dL Est GFR ( Amer) Est GFR (Non-Af Amer) POC Glucose (mg/dL) < 20 L* 52 L < 20 L* (65-110) mg/dL Random Glucose (75-110) mg/dL Hemoglobin A1c (4.2-6.5) % Calcium (8.6-10.4) mg/dl Total Bilirubin (0.2-1.3) mg/dL AST (17-59) U/L ALT (21-72) U/L Alkaline Phosphatase (38-126) U/L Total Creatine Kinase (55-170) U/L CK-MB (Mass) (0.0-3.38) ng/mL Troponin I (0.00-0.120) ng/mL Total Protein (6.3-8.3) g/dL Albumin (3.5-5.0) g/dL Globulin (2.2-3.9) gm/dL Albumin/Globulin Ratio (1.0-2.1) Serum Ketones (NEGATIVE) 09/03/17 09/03/17 09/03/17 Range/Units 15:45 14:40 13:21 WBC (4.8-10.8) K/uL RBC (4.40-5.90) Mil/uL Hgb (12.0-18.0) g/dL Hct (35.0-51.0) % MCV (80.0-94.0) fL MCH (27.0-31.0) pg MCHC (33.0-37.0) g/dL RDW (11.5-14.5) % Plt Count (130-400) K/uL MPV (7.2-11.7) fL Sodium 138 (132-148) mmol/L Potassium 5.5 H (3.6-5.2) mmol/L Chloride 100 (98-107) mmol/L Carbon Dioxide 21 L (22-30) mmol/L Anion Gap 22 H (10-20) BUN 63 H (9-20) mg/dL Creatinine 10.0 H* D (0.8-1.5) mg/dL Est GFR ( Amer) 6 Est GFR (Non-Af Amer) 5 POC Glucose (mg/dL) 108 80 (65-110) mg/dL Random Glucose 34 L* D (75-110) mg/dL Hemoglobin A1c (4.2-6.5) % Calcium 8.9 (8.6-10.4) mg/dl Total Bilirubin 0.5 (0.2-1.3) mg/dL AST 50 (17-59) U/L ALT 11 L D (21-72) U/L Alkaline Phosphatase 51 (38-126) U/L Total Creatine Kinase 737 H (55-170) U/L CK-MB (Mass) 3.84 H (0.0-3.38) ng/mL Troponin I 0.1190 (0.00-0.120) ng/mL Total Protein 7.5 (6.3-8.3) g/dL Albumin 3.8 (3.5-5.0) g/dL Globulin 3.7 (2.2-3.9) gm/dL Albumin/Globulin Ratio 1.0 (1.0-2.1) Serum Ketones Negative (NEGATIVE) Laboratory Results - last 24 hr 09/03/17 09/03/17 09/03/17 13:21 14:40 15:45 WBC RBC Hgb Hct MCV MCH MCHC RDW Plt Count MPV Sodium 138 Potassium 5.5 H Chloride 100 Carbon Dioxide 21 L Anion Gap 22 H BUN 63 H Creatinine 10.0 H* D Est GFR ( Amer) 6 Est GFR (Non-Af Amer) 5 POC Glucose (mg/dL) 80 108 Random Glucose 34 L* D Hemoglobin A1c Calcium 8.9 Total Bilirubin 0.5 AST 50 ALT 11 L D Alkaline Phosphatase 51 Total Creatine Kinase 737 H CK-MB (Mass) 3.84 H Troponin I 0.1190 Total Protein 7.5 Albumin 3.8 Globulin 3.7 Albumin/Globulin Ratio 1.0 Serum Ketones Negative 09/03/17 09/03/17 09/03/17 16:30 17:09 18:46 WBC RBC Hgb Hct MCV MCH MCHC RDW Plt Count MPV Sodium Potassium Chloride Carbon Dioxide Anion Gap BUN Creatinine Est GFR ( Amer) Est GFR (Non-Af Amer) POC Glucose (mg/dL) < 20 L* 52 L < 20 L* Random Glucose Hemoglobin A1c Calcium Total Bilirubin AST ALT Alkaline Phosphatase Total Creatine Kinase CK-MB (Mass) Troponin I Total Protein Albumin Globulin Albumin/Globulin Ratio Serum Ketones 09/03/17 09/03/17 09/03/17 18:49 19:40 20:23 WBC RBC Hgb Hct MCV MCH MCHC RDW Plt Count MPV Sodium Potassium Chloride Carbon Dioxide Anion Gap BUN Creatinine Est GFR ( Amer) Est GFR (Non-Af Amer) POC Glucose (mg/dL) < 20 L* 40 L 71 Random Glucose Hemoglobin A1c Calcium Total Bilirubin AST ALT Alkaline Phosphatase Total Creatine Kinase CK-MB (Mass) Troponin I Total Protein Albumin Globulin Albumin/Globulin Ratio Serum Ketones 09/03/17 09/03/17 09/03/17 20:47 22:01 22:58 WBC RBC Hgb Hct MCV MCH MCHC RDW Plt Count MPV Sodium Potassium Chloride Carbon Dioxide Anion Gap BUN Creatinine Est GFR ( Amer) Est GFR (Non-Af Amer) POC Glucose (mg/dL) 44 L 75 73 Random Glucose Hemoglobin A1c Calcium Total Bilirubin AST ALT Alkaline Phosphatase Total Creatine Kinase CK-MB (Mass) Troponin I Total Protein Albumin Globulin Albumin/Globulin Ratio Serum Ketones 09/04/17 09/04/17 09/04/17 00:09 00:13 00:55 WBC RBC Hgb Hct MCV MCH MCHC RDW Plt Count MPV Sodium Potassium Chloride Carbon Dioxide Anion Gap BUN Creatinine Est GFR ( Amer) Est GFR (Non-Af Amer) POC Glucose (mg/dL) 60 L 63 L 189 H Random Glucose Hemoglobin A1c Calcium Total Bilirubin AST ALT Alkaline Phosphatase Total Creatine Kinase CK-MB (Mass) Troponin I Total Protein Albumin Globulin Albumin/Globulin Ratio Serum Ketones 09/04/17 09/04/17 09/04/17 02:00 04:01 06:12 WBC 9.1 RBC 2.67 L Hgb 8.8 L D Hct 26.1 L MCV 97.8 H MCH 33.0 H MCHC 33.7 RDW 16.0 H Plt Count 159 D MPV 9.8 Sodium Potassium Chloride Carbon Dioxide Anion Gap BUN Creatinine Est GFR ( Amer) Est GFR (Non-Af Amer) POC Glucose (mg/dL) 199 H 201 H Random Glucose Hemoglobin A1c Calcium Total Bilirubin AST ALT Alkaline Phosphatase Total Creatine Kinase CK-MB (Mass) Troponin I Total Protein Albumin Globulin Albumin/Globulin Ratio Serum Ketones 09/04/17 09/04/17 09/04/17 06:12 06:14 06:35 WBC RBC Hgb Hct MCV MCH MCHC RDW Plt Count MPV Sodium 135 Potassium 5.1 Chloride 92 L Carbon Dioxide 29 Anion Gap 19 BUN 34 H Creatinine 6.4 H Est GFR ( Amer) 10 Est GFR (Non-Af Amer) 9 POC Glucose (mg/dL) 194 H Random Glucose 192 H Hemoglobin A1c 4.6 Calcium 8.7 Total Bilirubin 0.7 AST 48 ALT 18 L D Alkaline Phosphatase 54 Total Creatine Kinase CK-MB (Mass) Troponin I Total Protein 7.3 Albumin 3.7 Globulin 3.6 Albumin/Globulin Ratio 1.0 Serum Ketones 09/04/17 09/04/17 09/04/17 07:24 10:36 13:06 WBC RBC Hgb Hct MCV MCH MCHC RDW Plt Count MPV Sodium Potassium Chloride Carbon Dioxide Anion Gap BUN Creatinine Est GFR ( Amer) Est GFR (Non-Af Amer) POC Glucose (mg/dL) 193 H 149 H 139 H Random Glucose Hemoglobin A1c Calcium Total Bilirubin AST ALT Alkaline Phosphatase Total Creatine Kinase CK-MB (Mass) Troponin I Total Protein Albumin Globulin Albumin/Globulin Ratio Serum Ketones EKG/Cardiology Studies: Cardiology / EKG Studies 09/03/17 17:49 EKG [ELECTROCARDIOGRAM] Stat Comment: Mode Of Transportation: Reason For Exam: alter mental status Fingerstick Blood Sugar Results: 194 Critical Care Progress Note - Nutrition Nutrition: Nutrition Category Date Time Status Consistent Carbohydrate [DIET] Diets 09/04/17 Lunch Active Assessment/Plan - Assessment and Plan (Free Text) Assessment: This is a 72 year old male with ESRD (on HD MWF), DM, HTN, Prostate CA who presented due to hypoglycemia. He was also diagnosed with a subdural hematoma. Neuro Awake, verbal Per neurosurgery, no intervention for now but he should follow up as an outpatient Cardio Off of Nitro drip Started on Coreg 6.25 mg PO BID and Cardizem CD 180 mg PO daily Pulm Saturating well Endocrine Accuchecks Renal Nephro consulted for HD HD MWF Prophylaxis Protonix 40 mg IV daily Right femoral TLC to be removed Disposition: Transfer to telemetry Discussed with Dr. Alfaro <Last Alfaro S - Last Filed: 09/04/17 16:55> CCU Objective - Vital Signs / Intake & Output Vital Signs (Last 4 hours): Vital Signs Temp Pulse Resp BP Pulse Ox 09/04/17 15:34 86 25 H 165/73 H 09/04/17 15:00 98.6 F 80 21 97 09/04/17 14:52 83 20 157/78 H 09/04/17 14:00 92 H 23 09/04/17 13:00 84 21 Intake and Output (Last 8hrs): Intake & Output 09/04/17 09/04/17 09/04/17 06:59 14:59 22:59 Intake Total 600 620 Output Total 3000 0 Balance -2400 620 Weight 152 lb 12.8 oz Intake: Intake, IV Amount 550 260 Proximal Port Femoral 550 260 Oral 50 360 Output: Emesis 0 Other 3000 Other: # Bowel Movements 0 - Medications Active Medications: Active Medications Generic Name Dose Route Start Last Admin Trade Name Freq PRN Reason Stop Dose Admin Carvedilol 6.25 mg 09/04/17 18:00 Coreg PO BID SINDI Dextrose 0 gm 09/03/17 19:52 Glutose 15 PO ONCE PRN Hypoglycemia Protocol Protocol Dextrose 0 ml 09/04/17 00:24 Dextrose 50% Inj IV STAT PRN Hypoglycemia Protocol Protocol Dextrose 0 ml 09/04/17 13:16 Dextrose 50% Inj IV STAT PRN Hypoglycemia Protocol Protocol Diltiazem HCl 180 mg 09/04/17 10:15 09/04/17 11:46 Cardizem Cd PO 180 mg DAILY SINDI Administration Epoetin Robert 8,000 unit 09/05/17 09:00 Procrit IV MWF SINDI Glucagon 0 mg 09/03/17 19:52 Glucagen Diagnostic Kit IM STAT PRN Hypoglycemia Protocol Protocol Nitroglycerin/Dextrose 50 mg in 250 mls @ 1.5 mls/hr 09/03/17 17:45 09/03/17 18:32 Nitroglycerin 50 Mg/250 Ml D5w IV 5 mcg/min .Q24H SINDI 1.5 mls/hr Protocol Administration 5 MCG/MIN Dextrose 1,000 mls @ 0 mls/hr 09/04/17 13:16 Dextrose 5% In Water 1000 Ml IV .Q0M PRN Hypoglycemia Protocol Protocol Per Protocol Pantoprazole Sodium 40 mg 09/04/17 10:00 09/04/17 09:33 Protonix Inj IVP 40 mg DAILY SINDI Administration Vitamin B Complex/Vit C/Folic Acid 1 tab 09/05/17 08:00 Nephro-Yecenia PO 0800 SINDI - Patient Studies Lab Studies: Lab Studies 09/04/17 09/04/17 09/04/17 Range/Units 16:16 13:06 10:36 WBC (4.8-10.8) K/uL RBC (4.40-5.90) Mil/uL Hgb (12.0-18.0) g/dL Hct (35.0-51.0) % MCV (80.0-94.0) fL MCH (27.0-31.0) pg MCHC (33.0-37.0) g/dL RDW (11.5-14.5) % Plt Count (130-400) K/uL MPV (7.2-11.7) fL Sodium (132-148) mmol/L Potassium (3.6-5.2) mmol/L Chloride (98-107) mmol/L Carbon Dioxide (22-30) mmol/L Anion Gap (10-20) BUN (9-20) mg/dL Creatinine (0.8-1.5) mg/dL Est GFR ( Amer) Est GFR (Non-Af Amer) POC Glucose (mg/dL) 121 H 139 H 149 H (65-110) mg/dL Random Glucose (75-110) mg/dL Hemoglobin A1c (4.2-6.5) % Calcium (8.6-10.4) mg/dl Total Bilirubin (0.2-1.3) mg/dL AST (17-59) U/L ALT (21-72) U/L Alkaline Phosphatase (38-126) U/L Total Protein (6.3-8.3) g/dL Albumin (3.5-5.0) g/dL Globulin (2.2-3.9) gm/dL Albumin/Globulin Ratio (1.0-2.1) 09/04/17 09/04/17 09/04/17 Range/Units 07:24 06:35 06:14 WBC (4.8-10.8) K/uL RBC (4.40-5.90) Mil/uL Hgb (12.0-18.0) g/dL Hct (35.0-51.0) % MCV (80.0-94.0) fL MCH (27.0-31.0) pg MCHC (33.0-37.0) g/dL RDW (11.5-14.5) % Plt Count (130-400) K/uL MPV (7.2-11.7) fL Sodium 135 (132-148) mmol/L Potassium 5.1 (3.6-5.2) mmol/L Chloride 92 L (98-107) mmol/L Carbon Dioxide 29 (22-30) mmol/L Anion Gap 19 (10-20) BUN 34 H (9-20) mg/dL Creatinine 6.4 H (0.8-1.5) mg/dL Est GFR ( Amer) 10 Est GFR (Non-Af Amer) 9 POC Glucose (mg/dL) 193 H 194 H (65-110) mg/dL Random Glucose 192 H (75-110) mg/dL Hemoglobin A1c (4.2-6.5) % Calcium 8.7 (8.6-10.4) mg/dl Total Bilirubin 0.7 (0.2-1.3) mg/dL AST 48 (17-59) U/L ALT 18 L D (21-72) U/L Alkaline Phosphatase 54 (38-126) U/L Total Protein 7.3 (6.3-8.3) g/dL Albumin 3.7 (3.5-5.0) g/dL Globulin 3.6 (2.2-3.9) gm/dL Albumin/Globulin Ratio 1.0 (1.0-2.1) 09/04/17 09/04/17 09/04/17 Range/Units 06:12 06:12 04:01 WBC 9.1 (4.8-10.8) K/uL RBC 2.67 L (4.40-5.90) Mil/uL Hgb 8.8 L D (12.0-18.0) g/dL Hct 26.1 L (35.0-51.0) % MCV 97.8 H (80.0-94.0) fL MCH 33.0 H (27.0-31.0) pg MCHC 33.7 (33.0-37.0) g/dL RDW 16.0 H (11.5-14.5) % Plt Count 159 D (130-400) K/uL MPV 9.8 (7.2-11.7) fL Sodium (132-148) mmol/L Potassium (3.6-5.2) mmol/L Chloride (98-107) mmol/L Carbon Dioxide (22-30) mmol/L Anion Gap (10-20) BUN (9-20) mg/dL Creatinine (0.8-1.5) mg/dL Est GFR ( Amer) Est GFR (Non-Af Amer) POC Glucose (mg/dL) 201 H (65-110) mg/dL Random Glucose (75-110) mg/dL Hemoglobin A1c 4.6 (4.2-6.5) % Calcium (8.6-10.4) mg/dl Total Bilirubin (0.2-1.3) mg/dL AST (17-59) U/L ALT (21-72) U/L Alkaline Phosphatase (38-126) U/L Total Protein (6.3-8.3) g/dL Albumin (3.5-5.0) g/dL Globulin (2.2-3.9) gm/dL Albumin/Globulin Ratio (1.0-2.1) 09/04/17 09/04/17 09/04/17 Range/Units 02:00 00:55 00:13 WBC (4.8-10.8) K/uL RBC (4.40-5.90) Mil/uL Hgb (12.0-18.0) g/dL Hct (35.0-51.0) % MCV (80.0-94.0) fL MCH (27.0-31.0) pg MCHC (33.0-37.0) g/dL RDW (11.5-14.5) % Plt Count (130-400) K/uL MPV (7.2-11.7) fL Sodium (132-148) mmol/L Potassium (3.6-5.2) mmol/L Chloride (98-107) mmol/L Carbon Dioxide (22-30) mmol/L Anion Gap (10-20) BUN (9-20) mg/dL Creatinine (0.8-1.5) mg/dL Est GFR ( Amer) Est GFR (Non-Af Amer) POC Glucose (mg/dL) 199 H 189 H 63 L (65-110) mg/dL Random Glucose (75-110) mg/dL Hemoglobin A1c (4.2-6.5) % Calcium (8.6-10.4) mg/dl Total Bilirubin (0.2-1.3) mg/dL AST (17-59) U/L ALT (21-72) U/L Alkaline Phosphatase (38-126) U/L Total Protein (6.3-8.3) g/dL Albumin (3.5-5.0) g/dL Globulin (2.2-3.9) gm/dL Albumin/Globulin Ratio (1.0-2.1) 09/04/17 09/03/17 09/03/17 Range/Units 00:09 22:58 22:01 WBC (4.8-10.8) K/uL RBC (4.40-5.90) Mil/uL Hgb (12.0-18.0) g/dL Hct (35.0-51.0) % MCV (80.0-94.0) fL MCH (27.0-31.0) pg MCHC (33.0-37.0) g/dL RDW (11.5-14.5) % Plt Count (130-400) K/uL MPV (7.2-11.7) fL Sodium (132-148) mmol/L Potassium (3.6-5.2) mmol/L Chloride (98-107) mmol/L Carbon Dioxide (22-30) mmol/L Anion Gap (10-20) BUN (9-20) mg/dL Creatinine (0.8-1.5) mg/dL Est GFR ( Amer) Est GFR (Non-Af Amer) POC Glucose (mg/dL) 60 L 73 75 (65-110) mg/dL Random Glucose (75-110) mg/dL Hemoglobin A1c (4.2-6.5) % Calcium (8.6-10.4) mg/dl Total Bilirubin (0.2-1.3) mg/dL AST (17-59) U/L ALT (21-72) U/L Alkaline Phosphatase (38-126) U/L Total Protein (6.3-8.3) g/dL Albumin (3.5-5.0) g/dL Globulin (2.2-3.9) gm/dL Albumin/Globulin Ratio (1.0-2.1) 09/03/17 09/03/17 09/03/17 Range/Units 20:47 20:23 19:40 WBC (4.8-10.8) K/uL RBC (4.40-5.90) Mil/uL Hgb (12.0-18.0) g/dL Hct (35.0-51.0) % MCV (80.0-94.0) fL MCH (27.0-31.0) pg MCHC (33.0-37.0) g/dL RDW (11.5-14.5) % Plt Count (130-400) K/uL MPV (7.2-11.7) fL Sodium (132-148) mmol/L Potassium (3.6-5.2) mmol/L Chloride (98-107) mmol/L Carbon Dioxide (22-30) mmol/L Anion Gap (10-20) BUN (9-20) mg/dL Creatinine (0.8-1.5) mg/dL Est GFR ( Amer) Est GFR (Non-Af Amer) POC Glucose (mg/dL) 44 L 71 40 L (65-110) mg/dL Random Glucose (75-110) mg/dL Hemoglobin A1c (4.2-6.5) % Calcium (8.6-10.4) mg/dl Total Bilirubin (0.2-1.3) mg/dL AST (17-59) U/L ALT (21-72) U/L Alkaline Phosphatase (38-126) U/L Total Protein (6.3-8.3) g/dL Albumin (3.5-5.0) g/dL Globulin (2.2-3.9) gm/dL Albumin/Globulin Ratio (1.0-2.1) 09/03/17 09/03/17 09/03/17 Range/Units 18:49 18:46 17:09 WBC (4.8-10.8) K/uL RBC (4.40-5.90) Mil/uL Hgb (12.0-18.0) g/dL Hct (35.0-51.0) % MCV (80.0-94.0) fL MCH (27.0-31.0) pg MCHC (33.0-37.0) g/dL RDW (11.5-14.5) % Plt Count (130-400) K/uL MPV (7.2-11.7) fL Sodium (132-148) mmol/L Potassium (3.6-5.2) mmol/L Chloride (98-107) mmol/L Carbon Dioxide (22-30) mmol/L Anion Gap (10-20) BUN (9-20) mg/dL Creatinine (0.8-1.5) mg/dL Est GFR ( Amer) Est GFR (Non-Af Amer) POC Glucose (mg/dL) < 20 L* < 20 L* 52 L (65-110) mg/dL Random Glucose (75-110) mg/dL Hemoglobin A1c (4.2-6.5) % Calcium (8.6-10.4) mg/dl Total Bilirubin (0.2-1.3) mg/dL AST (17-59) U/L ALT (21-72) U/L Alkaline Phosphatase (38-126) U/L Total Protein (6.3-8.3) g/dL Albumin (3.5-5.0) g/dL Globulin (2.2-3.9) gm/dL Albumin/Globulin Ratio (1.0-2.1) Laboratory Results - last 24 hr 09/03/17 09/03/17 09/03/17 17:09 18:46 18:49 WBC RBC Hgb Hct MCV MCH MCHC RDW Plt Count MPV Sodium Potassium Chloride Carbon Dioxide Anion Gap BUN Creatinine Est GFR ( Amer) Est GFR (Non-Af Amer) POC Glucose (mg/dL) 52 L < 20 L* < 20 L* Random Glucose Hemoglobin A1c Calcium Total Bilirubin AST ALT Alkaline Phosphatase Total Protein Albumin Globulin Albumin/Globulin Ratio 09/03/17 09/03/17 09/03/17 19:40 20:23 20:47 WBC RBC Hgb Hct MCV MCH MCHC RDW Plt Count MPV Sodium Potassium Chloride Carbon Dioxide Anion Gap BUN Creatinine Est GFR ( Amer) Est GFR (Non-Af Amer) POC Glucose (mg/dL) 40 L 71 44 L Random Glucose Hemoglobin A1c Calcium Total Bilirubin AST ALT Alkaline Phosphatase Total Protein Albumin Globulin Albumin/Globulin Ratio 09/03/17 09/03/17 09/04/17 22:01 22:58 00:09 WBC RBC Hgb Hct MCV MCH MCHC RDW Plt Count MPV Sodium Potassium Chloride Carbon Dioxide Anion Gap BUN Creatinine Est GFR ( Amer) Est GFR (Non-Af Amer) POC Glucose (mg/dL) 75 73 60 L Random Glucose Hemoglobin A1c Calcium Total Bilirubin AST ALT Alkaline Phosphatase Total Protein Albumin Globulin Albumin/Globulin Ratio 09/04/17 09/04/17 09/04/17 00:13 00:55 02:00 WBC RBC Hgb Hct MCV MCH MCHC RDW Plt Count MPV Sodium Potassium Chloride Carbon Dioxide Anion Gap BUN Creatinine Est GFR ( Amer) Est GFR (Non-Af Amer) POC Glucose (mg/dL) 63 L 189 H 199 H Random Glucose Hemoglobin A1c Calcium Total Bilirubin AST ALT Alkaline Phosphatase Total Protein Albumin Globulin Albumin/Globulin Ratio 09/04/17 09/04/17 09/04/17 04:01 06:12 06:12 WBC 9.1 RBC 2.67 L Hgb 8.8 L D Hct 26.1 L MCV 97.8 H MCH 33.0 H MCHC 33.7 RDW 16.0 H Plt Count 159 D MPV 9.8 Sodium Potassium Chloride Carbon Dioxide Anion Gap BUN Creatinine Est GFR ( Amer) Est GFR (Non-Af Amer) POC Glucose (mg/dL) 201 H Random Glucose Hemoglobin A1c 4.6 Calcium Total Bilirubin AST ALT Alkaline Phosphatase Total Protein Albumin Globulin Albumin/Globulin Ratio 09/04/17 09/04/17 09/04/17 06:14 06:35 07:24 WBC RBC Hgb Hct MCV MCH MCHC RDW Plt Count MPV Sodium 135 Potassium 5.1 Chloride 92 L Carbon Dioxide 29 Anion Gap 19 BUN 34 H Creatinine 6.4 H Est GFR ( Amer) 10 Est GFR (Non-Af Amer) 9 POC Glucose (mg/dL) 194 H 193 H Random Glucose 192 H Hemoglobin A1c Calcium 8.7 Total Bilirubin 0.7 AST 48 ALT 18 L D Alkaline Phosphatase 54 Total Protein 7.3 Albumin 3.7 Globulin 3.6 Albumin/Globulin Ratio 1.0 09/04/17 09/04/17 09/04/17 10:36 13:06 16:16 WBC RBC Hgb Hct MCV MCH MCHC RDW Plt Count MPV Sodium Potassium Chloride Carbon Dioxide Anion Gap BUN Creatinine Est GFR ( Amer) Est GFR (Non-Af Amer) POC Glucose (mg/dL) 149 H 139 H 121 H Random Glucose Hemoglobin A1c Calcium Total Bilirubin AST ALT Alkaline Phosphatase Total Protein Albumin Globulin Albumin/Globulin Ratio EKG/Cardiology Studies: Cardiology / EKG Studies 09/03/17 17:49 EKG [ELECTROCARDIOGRAM] Stat Comment: Mode Of Transportation: Reason For Exam: alter mental status Critical Care Progress Note - Nutrition Nutrition: Nutrition Category Date Time Status Consistent Carbohydrate [DIET] Diets 09/04/17 Lunch Active Attending/Attestation - Attestation I have personally seen and examined this patient.: Yes I have fully participated in the care of the patient.: Yes I have reviewed all pertinent clinical information: Yes Notes (Text): 09/04/17 16:55 patient seen and examined in the intensive care unit. Stable for transfer to floor
--- NOTE | 2017-09-04 14:40 | CP.PCM.PN ---
Subjective - Date & Time of Evaluation Date of Evaluation: 09/04/17 Time of Evaluation: 13:00 - Subjective Subjective: Patient was seen and examined by me. He was more awake, alert, and talkative. There was a home health aid at bedside who was close with the patient. Per our discussion with a hydrochloric area supervisor - the patient said he still takes his sulfonurea as well as nateglitide - I explained that both of these medication can cause severe and dangerous low blood sugars because since he is ESRD and on HD that it is not easily cleared. I used very simple language. Per further discussion - other physician have told him this as well. However he is hesitant to use insulin so he persist in using sulfonyurea as well as starlix. Objective - Vital Signs/Intake and Output Vital Signs (last 24 hours): Temp Pulse Resp BP Pulse Ox 98 F 105 H 12 148/81 86 L 09/04/17 04:00 09/04/17 07:00 09/04/17 07:00 09/04/17 04:02 09/04/17 00:59 Intake and Output: 09/04/17 09/04/17 06:59 18:59 Intake Total 786.9 620 Output Total 3000 0 Balance -2213.1 620 - Medications Medications: Current Medications Carvedilol (Coreg) 6.25 mg PO BID SINDI Dextrose (Glutose 15) 0 gm PO ONCE PRN; Protocol PRN Reason: Hypoglycemia Protocol Dextrose (Dextrose 50% Inj) 0 ml IV STAT PRN; Protocol PRN Reason: Hypoglycemia Protocol Dextrose (Dextrose 50% Inj) 0 ml IV STAT PRN; Protocol PRN Reason: Hypoglycemia Protocol Diltiazem HCl (Cardizem Cd) 180 mg PO DAILY [facility] Last Admin: 09/04/17 11:46 Dose: 180 mg Epoetin Robert (Procrit) 8,000 unit IV MWF [facility] Glucagon (Glucagen Diagnostic Kit) 0 mg IM STAT PRN; Protocol PRN Reason: Hypoglycemia Protocol Nitroglycerin/Dextrose (Nitroglycerin 50 Mg/250 Ml D5w) 50 mg in 250 mls @ 1.5 mls/hr IV .Q24H SINDI; 5 MCG/MIN PRN Reason: Protocol Last Admin: 09/03/17 18:32 Dose: 5 mcg/min, 1.5 mls/hr Dextrose (Dextrose 5% In Water 1000 Ml) 1,000 mls @ 0 mls/hr IV .Q0M PRN; Protocol; Per Protocol PRN Reason: Hypoglycemia Protocol Pantoprazole Sodium (Protonix Inj) 40 mg IVP DAILY [facility] Last Admin: 09/04/17 09:33 Dose: 40 mg Vitamin B Complex/Vit C/Folic Acid (Nephro-Yecenia) 1 tab PO 0800 [facility] - Labs Labs: 09/04/17 06:12 09/04/17 06:14 - Constitutional Appears: Well, No Acute Distress - Head Exam Head Exam: NORMAL INSPECTION Additional comments: No brusies or echymosis over area where he hit his head - Cardiovascular Exam Cardiovascular Exam: REGULAR RHYTHM - GI/Abdominal Exam GI & Abdominal Exam: Soft, Normal Bowel Sounds - Neurological Exam Neurological Exam: Alert, Awake, CN II-XII Intact, Oriented x3 - Psychiatric Exam Psychiatric exam: Normal Affect, Normal Mood - Skin Skin Exam: Normal Color, Warm Assessment and Plan - Assessment and Plan (Free Text) Assessment: Hypoglycemia: 09/04/2017: He had repeated amps of D50 given and repeat accucheks in the 20s. Per my discussion with the patient he still takes his sulfonyurea as well as starlix - both of which can cause severe hypoglycemia when ESRD. It can hang around in the body for a very long time. His sugars are now more stable when. We had a conversation with the hydrochloric area supervisor to help patient understand. At some point probably safer that he use insulin Right subdural hematoma: 09/04/2017: Patient had repeat CT scan - the area of hemorrhage is stable. He will need PT/OT evaluation ESRD on HD: 09/04/2017: He had HD yesterday The blood pressure as well as accuchecks were much better after HD
[2017-09-05] MEDS ORDERED: EPOETIN ALFA 4,000 UNIT/ML ML Dialysis IV SCH (09:00)
--- NOTE | 2017-09-05 11:20 | CP.PCM.PN ---
Subjective - Date & Time of Evaluation Date of Evaluation: 09/05/17 Time of Evaluation: 11:17 - Subjective Subjective: Nephrology Consultation: Assessment: Stable HTN urgency with pulmonary congestion: improved fall, hypoglycemia with very tightly controlled DM SDH Diabetic chronic Kidney Disease (E11.22) Hypertensive Chronic Kidney Disease (I12.0) End stage renal disease (N18.6) dependence on hemodialysis (Z99.2) (MWF) via AVF Anemia (D64.9), Hyperphosphatemia (E83.39), Secondary Hyperparathyroidism (E21.1 ), HTN (I12.0) Plan: Will plan for dialysis today as MWF schedule. Continue with Nephrovite 1 tab/ day. PRBC as needed for anemia. On HOMER as epogen with HD, last Hb 8.8 Continue with phos binders home dose, check phos level BP control with meds as ordered. Patient not on RAAS mike hence added losartan 50 mg q PM. Glycemic control, avoid sulphonylureas. last a1c 4.6%. consider to hold oral hypoglycemics at d/c. Dialysis consistent diet Further work up/management as per primary team Dose meds/antibiotics (if needed) for ESRD status. Avoid fleets enema/magnesium based laxatives. vascular input for AVF suture removal. Neurosurgery input Re; Heparin use during dialysis. pt stable from renal perspective when planned. may need rehab as per primary team. Thanks for allowing me to participate in care of your patient. Will follow patient with you. Please call if any Qs. d/w team Dr Patrick Edmonds Office: [phone] reason for consult: ESRD and HTN HPI: Pt is a 72 M with hx of ESRD on hemodialysis (MWF) via AVF @ [facility] with Dr Javed, last dialysis yesterday in hospital, chronic anemia, hyperphosphatemia, secondary hyperparathyroidism, Diabetes Mellitus, hypertension presented with complaints of altered mental status and hypoglycemia , fall with small SDH. also with HTN urgency. pt was started on D10 drip and admitted to ICU. transferred to floor. seen by neurosurgery. SDH stable. ROS: Cardiovascular: No chest pain. Pulmonary: No shortness of breath Gastrointestinal: denies abdominal pain No nausea. No vomiting. Genitourinary: No pain while urinating. Denies blood in urine. All other negative except as mentioned in HPI. want to go home. Physical Examination: General Appearance: Comfortable, in no acute respiratory distress, co-operative . Vitals reviewed and noted as below Head; Atraumatic, normocephalic ENT: no ulcers no thrush. Tongue is midline. Oropharynx: no rash or ulcers. EYES: Pupils are equal, round and reactive to light accommodation. Eye muscles and extraocular movement intact. Sclera is anicteric. Neck; supple no lymphadenopathy, no thyromegaly or bruit Lungs: Normal respiratory rate/effort. Breath sounds bilateral equal and clear Heart: Normal rate. s1s2 normal. No rub or gallop. Extremities: no edema. No varicose veins Neurological: Patient is alert, awake and oriented to person, place and time. No focal deficit. Strength bilateral appropriate and equal Skin: Warm and dry. Normal turgor. No rash. Palpitation: Normal elasticity for age Abdomen: Abdomen is soft. Bowel sounds +. There is no abdominal tenderness, no guarding/rigidity or organomegaly Psych: normal insight and normal affect/mood MSK: no joint tenderness or swelling. Digits and nails normal, no deformity : kidney or bladder not palpable Access: AVF with thrill and bruit. has sutures on upper side of AVF Labs/imaging reviewed. Past medical history, past surgical history, family history, social history, allergy reviewed and noted as below Family Hx: no hx of CKD. Non contributory Objective - Vital Signs/Intake and Output Vital Signs (last 24 hours): Temp Pulse Resp BP Pulse Ox 98.8 F 79 20 166/73 H 96 09/05/17 07:00 09/05/17 07:00 09/05/17 07:00 09/05/17 07:00 09/05/17 07:00 Intake and Output: 09/05/17 09/05/17 06:59 18:59 Intake Total 100 Output Total 0 Balance 100 - Medications Medications: Current Medications Carvedilol (Coreg) 6.25 mg PO BID SINDI Last Admin: 09/04/17 17:18 Dose: 6.25 mg Dextrose (Glutose 15) 0 gm PO ONCE PRN; Protocol PRN Reason: Hypoglycemia Protocol Dextrose (Dextrose 50% Inj) 0 ml IV STAT PRN; Protocol PRN Reason: Hypoglycemia Protocol Dextrose (Dextrose 50% Inj) 0 ml IV STAT PRN; Protocol PRN Reason: Hypoglycemia Protocol Diltiazem HCl (Cardizem Cd) 180 mg PO DAILY [facility] Last Admin: 09/04/17 11:46 Dose: 180 mg Epoetin Robert (Procrit) 8,000 unit IV MWF [facility] Glucagon (Glucagen Diagnostic Kit) 0 mg IM STAT PRN; Protocol PRN Reason: Hypoglycemia Protocol Dextrose (Dextrose 5% In Water 1000 Ml) 1,000 mls @ 0 mls/hr IV .Q0M PRN; Protocol; Per Protocol PRN Reason: Hypoglycemia Protocol Losartan Potassium (Cozaar) 50 mg PO QPM [facility] Pantoprazole Sodium (Protonix Inj) 40 mg IVP DAILY [facility] Last Admin: 09/04/17 09:33 Dose: 40 mg Vitamin B Complex/Vit C/Folic Acid (Nephro-Yecenia) 1 tab PO 0800 [facility] - Labs Labs: 09/04/17 06:12 09/04/17 06:14
[2017-09-05] MEDS: diltiaZEM 180 mg/24 Hours CD Cap PO SCH (13:33)
[2017-09-05] MEDS: Multivitamin Vitamin B Complex (Nephro-Vite) Tab PO SCH (15:13)
[2017-09-05 15:52] VITALS: RESP 20
--- NOTE | 2017-09-05 19:38 | CP.PCM.PN ---
Subjective - Date & Time of Evaluation Date of Evaluation: 09/05/17 Time of Evaluation: 09:00 - Subjective Subjective: Medicine progress note ( Dr. Viera's service) Patient was seen and examined at bedside. Patient reports that he is doing well. Patient is oriented to place, location. Patient denies headache, chest pain, palpitaions, SOB, blurry vision. Patient remains mildly agitated about wanting to go home and refusing to go to TCU as recommended by physical therapy. Patient's daughter was notified and she wants her dad to go to TCU as he is alone at home and does not have 24 hour care. Objective - Vital Signs/Intake and Output Vital Signs (last 24 hours): Temp Pulse Resp BP Pulse Ox 98.1 F 96 H 20 136/80 100 09/05/17 15:00 09/05/17 15:00 09/05/17 15:00 09/05/17 15:00 09/05/17 15:00 - Medications Medications: Current Medications Carvedilol (Coreg) 6.25 mg PO BID [facility] Last Admin: 09/05/17 17:20 Dose: 6.25 mg Dextrose (Glutose 15) 0 gm PO ONCE PRN; Protocol PRN Reason: Hypoglycemia Protocol Dextrose (Dextrose 50% Inj) 0 ml IV STAT PRN; Protocol PRN Reason: Hypoglycemia Protocol Dextrose (Dextrose 50% Inj) 0 ml IV STAT PRN; Protocol PRN Reason: Hypoglycemia Protocol Diltiazem HCl (Cardizem Cd) 180 mg PO DAILY [facility] Last Admin: 09/05/17 13:33 Dose: 180 mg Epoetin Robert (Procrit) 8,000 unit IV MWF [facility] Last Admin: 09/05/17 12:43 Dose: 8,000 unit Glucagon (Glucagen Diagnostic Kit) 0 mg IM STAT PRN; Protocol PRN Reason: Hypoglycemia Protocol Dextrose (Dextrose 5% In Water 1000 Ml) 1,000 mls @ 0 mls/hr IV .Q0M PRN; Protocol; Per Protocol PRN Reason: Hypoglycemia Protocol Losartan Potassium (Cozaar) 50 mg PO QPM [facility] Pantoprazole Sodium (Protonix Inj) 40 mg IVP DAILY [facility] Last Admin: 09/05/17 15:13 Dose: Not Given Vitamin B Complex/Vit C/Folic Acid (Nephro-Yecenia) 1 tab PO 0800 [facility] Last Admin: 09/05/17 15:13 Dose: Not Given - Labs Labs: 09/04/17 06:12 09/04/17 06:14 - Constitutional Appears: Well, No Acute Distress - Head Exam Head Exam: ATRAUMATIC, NORMAL INSPECTION - Eye Exam Eye Exam: EOMI, Normal appearance - ENT Exam ENT Exam: Mucous Membranes Moist - Respiratory Exam Respiratory Exam: Clear to Ausculation Bilateral, NORMAL BREATHING PATTERN. absent: Prolonged Expiratory Phase, Rhonchi, Wheezes, Respiratory Distress - Cardiovascular Exam Cardiovascular Exam: REGULAR RHYTHM, +S1, +S2. absent: Bradycardia, Tachycardia , Clicks, Diastolic murmur, Murmur - GI/Abdominal Exam GI & Abdominal Exam: Soft, Normal Bowel Sounds. absent: Distended, Firm, Guarding, Rigid, Tenderness - Extremities Exam Extremities Exam: Normal Inspection. absent: Calf Tenderness, Pedal Edema, Tenderness - Neurological Exam Neurological Exam: Abnormal Gait, Alert, Oriented x3 Neuro motor strength exam: Left Upper Extremity: 5, Right Upper Extremity: 5, Left Lower Extremity: 5, Right Lower Extremity: 5 - Psychiatric Exam Psychiatric exam: Normal Affect, Normal Mood - Skin Skin Exam: Normal Color Assessment and Plan (1) Subdural hemorrhage Assessment & Plan: Consultation: -Neurosurgery, Dr. Henry---> Help appreciated * Management as per recommendation * No surgical intervention * Outpatient follow up upon discharge Imaging: HEAD CT (09/03/17):Acute right frontal subdural hemorrhage, up to 9 mm in width. 1-2 mm midline shift towards the left. No parenchymal hemorrhage identified. HEAD CT (09/04/17): Stable unenhanced head CT including a small right frontotemporal subdural hematoma likely with extension into the right tentorium with minimal leftward shift of up to 2 mm once again. No significant interval change. Motion artifacts degrade the quality this examination and skullbase as well as motionartifacts obscured the right tentorium more so on the prior CT exam 09/03/[address] Continued clinical and CT monitoring is advised. Age-related neuro degenerative changes reiterated. Management: Physical and occupation therapy Status: Acute (2) Uncontrolled hypertension Assessment & Plan: Coreg 6.25mg PO BID Cardizem 180mg PO daily Continue to monitor with vital signs Q4H Status: Acute (3) Hypoglycemia Assessment & Plan: Hypoglycemia protocol Status: Acute (4) End stage renal disease Assessment & Plan: Nephrology, Dr. Edmonds on board--> Help appreciated HD M, W, F Epocrit 8,000 unit IV MWF Nephrovite 1 tab PO daily Status: Acute (5) Prophylactic measure Assessment & Plan: GI: Protonix 40mg PO daily DVT: Anticoagulation due to subdural hematoma Disposition: Plans for discharge to TCU tomorrow, 09/06/2017 All plans and management to discussed with Dr. Viera Status: Acute
[2017-09-06 08:26] LABS: BASO # 0.1 K/uL (0.0-0.2); BASO % 1.3 % (0.0-2.0); EOS # 0.3 K/uL (0.0-0.7); EOS % 3.3 % (0.0-4.0); HEMOGLOBIN 9.2 g/dL (12.0-18.0); LYMPH # 1.9 K/uL (1.0-4.3); LYMPH % 23.6 % (20.0-40.0); MEAN CELL VOLUME 97.2 fL (80.0-94.0); MEAN CORPUSCULAR HEMOGLOBIN 32.5 pg (27.0-31.0); MEAN CORPUSCULAR HGB CONC 33.5 g/dL (33.0-37.0); MEAN PLATELET VOLUME 9.6 fL (7.2-11.7); MONO # 0.9 K/uL (0.0-0.8); MONO % 10.5 % (0.0-10.0); NEUT % 61.3 % (50.0-75.0); RBC 2.84 Mil/uL (4.40-5.90); WHITE BLOOD COUNT 8.2 K/uL (4.8-10.8)
[2017-09-06 08:41] LABS: CALCIUM 8.8 mg/dl (8.6-10.4)
[2017-09-06] MEDS: Multivitamin Vitamin B Complex (Nephro-Vite) Tab PO SCH (09:00)
[2017-09-06] MEDS: diltiaZEM 180 mg/24 Hours CD Cap PO SCH (10:37)
--- NOTE | 2017-09-06 13:30 | CP.PCM.DIS ---
Provider - Provider Date of Admission: 09/03/17 16:39 Attending physician: Leander Viera MD Time Spent in preparation of Discharge (in minutes): 35 Diagnosis - Discharge Diagnosis (1) Subdural hemorrhage Status: Acute (2) Uncontrolled hypertension Status: Chronic (3) Hypoglycemia Status: Acute (4) End stage renal disease Status: Chronic (5) Prophylactic measure Status: Acute Hospital Course - Lab Results Lab Results: Micro Results 09/03/17 Unknown Nose MRSA Culture (Admit) - Final MRSA NOT DETECTED Most Recent Lab Values WBC 8.2 K/uL (4.8-10.8) 09/06/17 08:14 RBC 2.84 Mil/uL (4.40-5.90) L 09/06/17 08:14 Hgb 9.2 g/dL (12.0-18.0) L 09/06/17 08:14 Hct 27.6 % (35.0-51.0) L 09/06/17 08:14 MCV 97.2 fL (80.0-94.0) H 09/06/17 08:14 MCH 32.5 pg (27.0-31.0) H 09/06/17 08:14 MCHC 33.5 g/dL (33.0-37.0) 09/06/17 08:14 RDW 15.0 % (11.5-14.5) H 09/06/17 08:14 Plt Count 189 K/uL (130-400) 09/06/17 08:14 MPV 9.6 fL (7.2-11.7) 09/06/17 08:14 Neut % (Auto) 61.3 % (50.0-75.0) 09/06/17 08:14 Lymph % (Auto) 23.6 % (20.0-40.0) 09/06/17 08:14 [place]urel % (Auto) 10.5 % (0.0-10.0) H 09/06/17 08:14 Eos % (Auto) 3.3 % (0.0-4.0) 09/06/17 08:14 Baso % (Auto) 1.3 % (0.0-2.0) 09/06/17 08:14 Neut # (Auto) 5.0 K/uL (1.8-7.0) 09/06/17 08:14 Lymph # (Auto) 1.9 K/uL (1.0-4.3) 09/06/17 08:14 Laurel # (Auto) 0.9 K/uL (0.0-0.8) H 09/06/17 08:14 Eos # (Auto) 0.3 K/uL (0.0-0.7) 09/06/17 08:14 Baso # (Auto) 0.1 K/uL (0.0-0.2) 09/06/17 08:14 Neutrophils % (Manual) 90 % (50-75) H 09/03/17 12:07 Lymphocytes % (Manual) 4 % (20-40) L 09/03/17 12:07 Monocytes % (Manual) 5 % (0-10) 09/03/17 12:07 Basophils % (Manual) 1 % (0-2) 09/03/17 12:07 Platelet Estimate Normal (NORMAL) 09/03/17 12:07 Anisocytosis (manual) Slight 09/03/17 12:07 Sodium 137 mmol/L (132-148) 09/06/17 08:14 Potassium 5.0 mmol/L (3.6-5.2) 09/06/17 08:14 Chloride 93 mmol/L (98-107) L 09/06/17 08:14 Carbon Dioxide 29 mmol/L (22-30) 09/06/17 08:14 Anion Gap 20 (10-20) 09/06/17 08:14 BUN 33 mg/dL (9-20) H 09/06/17 08:14 Creatinine 6.0 mg/dL (0.8-1.5) H 09/06/17 08:14 Est GFR ( Amer) 11 09/06/17 08:14 Est GFR (Non-Af Amer) 9 09/06/17 08:14 POC Glucose (mg/dL) 134 mg/dL (65-110) H 09/06/17 11:29 Random Glucose 117 mg/dL (75-110) H 09/06/17 08:14 Hemoglobin A1c 4.6 % (4.2-6.5) 09/04/17 06:12 Calcium 8.8 mg/dl (8.6-10.4) 09/06/17 08:14 Phosphorus 5.7 mg/dL (2.5-4.5) H 09/06/17 08:14 Magnesium 2.5 mg/dL (1.6-2.3) H 09/06/17 08:14 Total Bilirubin 0.8 mg/dL (0.2-1.3) 09/06/17 08:14 AST 47 U/L (17-59) 09/06/17 08:14 ALT 28 U/L (21-72) 09/06/17 08:14 Alkaline Phosphatase 52 U/L (38-126) 09/06/17 08:14 Total Creatine Kinase 737 U/L (55-170) H 09/03/17 13:21 CK-MB (Mass) 3.84 ng/mL (0.0-3.38) H 09/03/17 13:21 Troponin I 0.1190 ng/mL (0.00-0.120) 09/03/17 13:21 Total Protein 8.0 g/dL (6.3-8.3) 09/06/17 08:14 Albumin 4.0 g/dL (3.5-5.0) 09/06/17 08:14 Globulin 4.0 gm/dL (2.2-3.9) H 09/06/17 08:14 Albumin/Globulin Ratio 1.0 (1.0-2.1) 09/06/17 08:14 Serum Ketones Negative (NEGATIVE) 09/03/17 13:21 - Hospital Course Hospital Course: HPI ( As per admission): This is a 72 year old male with ESRD (on HD MWF), DM, HTN, Prostate CA who presented due to hypoglycemia. Patient reportedly fell out of his bed and hit his head. Patient diagnosed with subdural hematoma due to the fall. Patient complaining of general malaise, palpitations, and tremors. Hospital Course: Patient was admitted to the ICU unit due to noted subdural hematoma s/p fall due to hypoglycemic events. Patient's glucose was corrected immediately and anti -diabetic medications were head. Neurosurgery, Dr. Bernal was consulted, who recommended no surgical intervention at the moment and outpatient follow up due to repeat HEAD CT, which noted a stabilized bleed and patient was without any neurological deficit. Truck Washer, Dr. Edmonds was consulted in order to manage patient's HD schedule and HD orders. Over the course of admission, patient remained stable with no acute events. Physical therapy also evaluated the patient, who recommended that patient to be discharge to [facility] in order to gain more strength and steady gait. In addition, patient was counselled on switching to insulin and stop anti-diabetic medications that will make patient more susceptible to hypoglycemic episode; patient refuses at this time. Patient' s daughter, Ayde Hurst was made aware and recommendation was made for patient to follow up with risk and insurance manager for anti-diabetic medication revision. Patient was discharged to [facility] with appropriated instruction. Pertinent Imaging: HEAD CT (09/03/17):Acute right frontal subdural hemorrhage, up to 9 mm in width. 1-2 mm midline shift towards the left. No parenchymal hemorrhage identified. HEAD CT (09/04/17): Stable unenhanced head CT including a small right frontotemporal subdural hematoma likely with extension into the right tentorium with minimal leftward shift of up to 2 mm once again. No significant interval change. Motion artifacts degrade the quality this examination and skullbase as well as motionartifacts obscured the right tentorium more so on the prior CT exam 09/03/[address]. Continued clinical and CT monitoring is advised. Age-related neuro degenerative changes reiterated. This is a brief summary of events. For a complete course, please refer to the medical records. Discharge Exam - Head Exam Head Exam: ATRAUMATIC, NORMAL INSPECTION - Eye Exam Eye Exam: EOMI. absent: Periorbital swelling - ENT Exam ENT Exam: Mucous Membranes Moist - Respiratory Exam Respiratory Exam: Clear to PA & Lateral, NORMAL BREATHING PATTERN. absent: Chest Wall Tenderness, Respiratory Distress, UNREMARKABLE - Cardiovascular Exam Cardiovascular Exam: REGULAR RHYTHM, +S1, +S2 - GI/Abdominal Exam GI & Abdominal Exam: Normal Bowel Sounds, Unremarkable. absent: Diminished Bowel Sounds, Distended, Hernia, Hyperactive Bowel Sounds, Hypoactive Bowel Sounds - Extremities Exam Extremities exam: normal inspection - Neurological Exam Neurological exam: Alert, CN II-XII Intact, Oriented x3 Additional comments: Unsteady gait - Psychiatric Exam Psychiatric exam: Normal Affect - Skin Skin Exam: Dry, Normal Color Discharge Plan - Follow Up Plan Condition: STABLE Disposition: REHAB FACILITY/REHAB UNIT Instructions: Dialysis Diet , Heart Failure, Adult (DC), Hemodialysis (DC), Carbohydrate Counting Diet, Diabetes Diet , Subdural Hematoma (DC), End Stage Kidney Disease (DC) Additional Instructions: Please discharge patient to [facility] Patient's sutures from AVF was removed prior to discharge as per Truck Washer, Dr. Edmonds's request Please follow up with Dr. Henry, Neurosurgery within a week of discharge Please resume all your home medication Please see your risk and insurance manager in order to revise your diabetic medications Please check blood glucose before and after diabetic medications. Please be mindful of hypoglycemic episodes as patient is resistant to being on Insulin at this time. Patient's current diabetic medications have side effects of hypoglycemic episodes. Please continue dialysis as scheduled and patient can resume heparin on dialysis next week Sunday as per Dr. Bernal Please take care Referrals: Patrick Edmonds MD [Staff Provider] -
--- NOTE | 2017-09-06 14:27 | CP.PCM.PN ---
Subjective - Date & Time of Evaluation Date of Evaluation: 09/06/17 Time of Evaluation: 14:26 - Subjective Subjective: Nephrology Consultation: Assessment: Stable HTN urgency with pulmonary congestion: improved fall, hypoglycemia with very tightly controlled DM SDH Diabetic chronic Kidney Disease (E11.22) Hypertensive Chronic Kidney Disease (I12.0) End stage renal disease (N18.6) dependence on hemodialysis (Z99.2) (MWF) via AVF Anemia (D64.9), Hyperphosphatemia (E83.39), Secondary Hyperparathyroidism (E21.1 ), HTN (I12.0) Plan: Will plan for dialysis tomorrow as MWF schedule. Continue with Nephrovite 1 tab/ day. PRBC as needed for anemia. On HOMER as epogen with HD, last Hb 9.2 Continue with phos binders home dose, check phos level BP control with meds as ordered. Patient not on RAAS mike hence added losartan 50 mg q PM. Glycemic control, avoid sulphonylureas. last a1c 4.6%. consider to hold oral hypoglycemics at d/c. Dialysis consistent diet Further work up/management as per primary team Dose meds/antibiotics (if needed) for ESRD status. Avoid fleets enema/magnesium based laxatives. vascular input appreciated for AVF suture removal. Neurosurgery input Re; Heparin use during dialysis, appreciated. okay to resume heparin during HD from next week. his HD unit was called and updated about it. pt stable from renal perspective when planned. may need rehab as per primary team. Thanks for allowing me to participate in care of your patient. Will follow patient with you. Please call if any Qs. d/w team Dr Patrick Edmonds Office: [phone] reason for consult: ESRD and HTN HPI: Pt is a 72 M with hx of ESRD on hemodialysis (MWF) via AVF @ [facility] with Dr Javed, last dialysis yesterday in hospital, chronic anemia, hyperphosphatemia, secondary hyperparathyroidism, Diabetes Mellitus, hypertension presented with complaints of altered mental status and hypoglycemia , fall with small SDH. also with HTN urgency. pt was started on D10 drip and admitted to ICU. transferred to floor. seen by neurosurgery. SDH stable. ROS: Cardiovascular: No chest pain. Pulmonary: No shortness of breath Gastrointestinal: denies abdominal pain No nausea. No vomiting. Genitourinary: No pain while urinating. Denies blood in urine. All other negative except as mentioned in HPI. want to go home. Physical Examination: General Appearance: Comfortable, in no acute respiratory distress, co-operative . Vitals reviewed and noted as below Head; Atraumatic, normocephalic ENT: no ulcers no thrush. Tongue is midline. Oropharynx: no rash or ulcers. EYES: Pupils are equal, round and reactive to light accommodation. Eye muscles and extraocular movement intact. Sclera is anicteric. Neck; supple no lymphadenopathy, no thyromegaly or bruit Lungs: Normal respiratory rate/effort. Breath sounds bilateral equal and clear Heart: Normal rate. s1s2 normal. No rub or gallop. Extremities: no edema. No varicose veins Neurological: Patient is alert, awake and oriented to person, place and time. No focal deficit. Strength bilateral appropriate and equal Skin: Warm and dry. Normal turgor. No rash. Palpitation: Normal elasticity for age Abdomen: Abdomen is soft. Bowel sounds +. There is no abdominal tenderness, no guarding/rigidity or organomegaly Psych: normal insight and normal affect/mood MSK: no joint tenderness or swelling. Digits and nails normal, no deformity : kidney or bladder not palpable Access: AVF with thrill and bruit. Labs/imaging reviewed. Past medical history, past surgical history, family history, social history, allergy reviewed and noted as below Family Hx: no hx of CKD. Non contributory Objective - Vital Signs/Intake and Output Vital Signs (last 24 hours): Temp Pulse Resp BP Pulse Ox 98.1 F 85 20 166/77 H 100 09/06/17 07:00 09/06/17 07:00 09/06/17 07:00 09/06/17 07:00 09/06/17 07:00 - Medications Medications: Current Medications Carvedilol (Coreg) 6.25 mg PO BID SINDI Last Admin: 09/06/17 10:37 Dose: 6.25 mg Dextrose (Glutose 15) 0 gm PO ONCE PRN; Protocol PRN Reason: Hypoglycemia Protocol Dextrose (Dextrose 50% Inj) 0 ml IV STAT PRN; Protocol PRN Reason: Hypoglycemia Protocol Dextrose (Dextrose 50% Inj) 0 ml IV STAT PRN; Protocol PRN Reason: Hypoglycemia Protocol Diltiazem HCl (Cardizem Cd) 180 mg PO DAILY [facility] Last Admin: 09/06/17 10:37 Dose: 180 mg Epoetin Robert (Procrit) 8,000 unit IV MWF [facility] Last Admin: 09/05/17 12:43 Dose: 8,000 unit Glucagon (Glucagen Diagnostic Kit) 0 mg IM STAT PRN; Protocol PRN Reason: Hypoglycemia Protocol Dextrose (Dextrose 5% In Water 1000 Ml) 1,000 mls @ 0 mls/hr IV .Q0M PRN; Protocol; Per Protocol PRN Reason: Hypoglycemia Protocol Losartan Potassium (Cozaar) 50 mg PO QPM [facility] Last Admin: 09/05/17 20:26 Dose: 50 mg Pantoprazole Sodium (Protonix Inj) 40 mg IVP DAILY [facility] Last Admin: 09/06/17 10:41 Dose: Not Given Vitamin B Complex/Vit C/Folic Acid (Nephro-Yecenia) 1 tab PO 0800 [facility] Last Admin: 09/06/17 09:00 Dose: 1 tab - Labs Labs: 09/06/17 08:14 09/06/17 08:14
[2017-09-06 16:41] VITALS: BP 156/76; PULSE 81; TEMP 98.5; O2SAT 98
[2017-09-07] MEDS ORDERED: Pantoprazole 40 mg EC Tab PO SCH (10:00)
== END 2017-09-06 17:15 | DRG 82 ==
LOC: C.ER 10:58 → C.9E 16:39 → C.9I 19:35 → C.6T 09-04 21:25
PROVIDERS: ADMIT Internal Medicine; ATTEND Internal Medicine
PROC: 06HY33Z Insertion of Infusion Device into Lower Vein, Percutaneous Approach (ICD-10-PCS; 2017-09-03)
PROC: 5A1D70Z Performance of Urinary Filtration, Intermittent, Less than 6 Hours Per Day (ICD-10-PCS; principal; 2017-09-04)
DX: S06.5X9A Traumatic subdural hemorrhage with loss of consciousness of unspecified duration, initial encounter (principal); N18.6 End stage renal disease; I13.2 Hypertensive heart and chronic kidney disease with heart failure and with stage 5 chronic kidney disease, or end stage renal disease; N25.81 Secondary hyperparathyroidism of renal origin; E11.649 Type 2 diabetes mellitus with hypoglycemia without coma; E11.22 Type 2 diabetes mellitus with diabetic chronic kidney disease; I50.9 Heart failure, unspecified; Z99.2 Dependence on renal dialysis; I16.0 Hypertensive urgency; E83.39 Other disorders of phosphorus metabolism; I25.119 Atherosclerotic heart disease of native coronary artery with unspecified angina pectoris; W06.XXXA Fall from bed, initial encounter; Z79.4 Long term (current) use of insulin; C61 Malignant neoplasm of prostate; D64.9 Anemia, unspecified; R09.89 Other specified symptoms and signs involving the circulatory and respiratory systems

== ENCOUNTER 2017-12-20 06:14 | Day surgery (SDC) | payer MEDICARE ==
[2017-12-20] MEDS ORDERED: Propofol 10 mg/ml Inj (20 ML) ONE ×2 (07:39→08:01)
[2017-12-20] MEDS ORDERED: Phenylephrine 10 mg/ml Inj ONE (07:40)
[2017-12-20] MEDS ORDERED: Sodium Chloride 0.9% 500 ML IV ONE (08:55)
[2017-12-20 09:51] VITALS: O2SAT 99
[2017-12-20 09:53] VITALS: BP 128/59; PULSE 68; RESP 18; TEMP 97.5
== END 2017-12-20 10:05 | disposition home or self-care (01) ==
LOC: C.ENDO 06:14
PROVIDERS: ATTEND Internal Medicine Gastroenterology
DX: Z12.11 Encounter for screening for malignant neoplasm of colon (principal); D12.3 Benign neoplasm of transverse colon; K63.5 Polyp of colon; I12.0 Hypertensive chronic kidney disease with stage 5 chronic kidney disease or end stage renal disease; N18.6 End stage renal disease; Z99.2 Dependence on renal dialysis; E11.22 Type 2 diabetes mellitus with diabetic chronic kidney disease; Z80.0 Family history of malignant neoplasm of digestive organs
CPT/HCPCS: 45380; 45385; 82948; 88305; J2001; J2370; J2704; J7030; J7040